=== PATIENT | female | born 1945 | race Caucasian/White ===

== ENCOUNTER 2022-04-27 07:30 | Outpatient (RCR) | payer OTHER, SELFPAY | END 2022-10-05 23:59 | disposition home or self-care (01) | PROVIDERS: PCP Physician Assistant Medical; Visit Provider Family Medicine | DX: M11.261 Other chondrocalcinosis, right knee (principal); M25.461 Effusion, right knee; M17.11 Unilateral primary osteoarthritis, right knee; M16.11 Unilateral primary osteoarthritis, right hip; M25.561 Pain in right knee; M25.552 Pain in left hip; M54.50 Low back pain, unspecified; M51.36 Other intervertebral disc degeneration, lumbar region; Z98.1 Arthrodesis status; R26.89 Other abnormalities of gait and mobility; Z51.89 Encounter for other specified aftercare | CPT/HCPCS: 97032; 97110; 97140; 97162 ==

== ENCOUNTER 2023-01-06 23:21 | Emergency (ER) | payer OTHER, SELFPAY ==
[2023-01-06 23:26] VITALS: BP 172/83; PULSE 72; RESP 18; TEMP 36.9; O2SAT 98; BMI 26.6
[2023-01-06 23:39] LABS: Appearance Urine Clear (Clear); Bilirubin Urine Negative (Negative); Blood Urine 3+ (Negative); Color Urine Yellow (Yellow); Glucose Urine Negative (Negative); Ketones Urine Negative (Negative); Leukocyte Esterase Urine Trace (Negative); Nitrite Urine Negative (Negative); Protein Urine Negative (Negative); Specific Gravity Urine 1.015 (1.000-1.030); Urobilinogen Urine 0.2 (0.2-1.0); pH Urine 5.5 (5.0-8.5)
--- NOTE | 2023-01-06 23:42 | ED_ITS ---
HPI - General Adult General Time Seen by Provider: 23:42 <Tonja Alexander MD - Last Filed: 01/08/23 14:18> Date Seen: 01/06/23 <Tonja Alexander MD - Last Filed: 01/08/23 14:18> Chief complaint: Flank Pain <Tonja Alexander MD - Last Filed: 01/08/23 14:18> Stated complaint: possible kidney stone <Tonja Alexander MD - Last Filed: 01/08/23 14:18> Time Seen by Provider: 01/06/23 23:42 <Tonja Alexander MD - Last Filed: 01/08/23 14:18> Source: patient and RN notes reviewed <Tonja Alexander MD - Last Filed: 1 14:18> Mode of arrival: ambulatory <Tonja Alexander MD - Last Filed: 01/08/23 14:18> Limitations: no limitations <Tonja Alexander MD - Last Filed: 01/08/23 14:18> History of Present Illness HPI narrative: Patient is coming in with complaint of left back pain, wrapping around front of abdomen and radiating into left labial area. Has history of kidney stones. Had blood in urine last week, some low back pain. Now having increasing abdominal pain/back pain. Had nausea on way in. No fever, no vomiting. She states that she gets her kidney function done yearly as she uses a lot of Aleve. Has oxycodone at home for her back but probably only uses every couple of weeks, did not try any tonight. Just wants to know if this is a stone. Was supposed to have one stone removed but when she got to the OR that day, the US showed the stone was gone; thus, no surgical interventions ever for stone pathology. <Tonja Alexander MD - Last Filed: 01/08/23 14:18> Related Data Home medications: Home Medications Medication Instructions Recorded Confirmed amlodipine 5 mg tablet mg PO ONCE 09/15/21 06/08/22 benazepril 10 mg tablet mg PO ONCE 09/15/21 06/08/22 finasteride 5 mg tablet 2.5 mg PO DAILY 09/15/21 06/08/22 gabapentin 300 mg capsule 300 mg PO QDAY 09/15/21 06/08/22 naproxen sodium 220 mg tablet 220 mg PO BID 09/15/21 06/08/22 rosuvastatin 10 mg tablet 10 mg PO DAILY 09/15/21 06/08/22 Previous Rx's Medication Instructions Recorded ondansetron HCl 4 mg tablet 4 mg PO Q8H PRN nausea and 01/07/23 vomiting #20 tabs <Tonja Alexander MD - Last Filed: 01/08/23 14:18> Allergies/adverse reactions: Allergies Allergy/AdvReac Type Severity Reaction Status Date / Time No Known Allergies Allergy Verified 06/08/22 13:28 <Tonja Alexander MD - Last Filed: 01/08/23 14:18> Review of Systems Status of ROS: Reports: 6 or more systems reviewed and unremarkable except as noted in History and below <Tonja Alexander MD - Last Filed: 01/08/23 14:18> [facility] Medical History: Medical History Hair loss ?L65.9 - Nonscarring hair loss, unspecified (ICD-10) Actinic keratoses ?L57.0 - Actinic keratosis (ICD-10) Skin problem ?L98.9 - Disorder of the skin and subcutaneous tissue, unspecified (ICD-10) Stomach problems ?K31.9 - Disease of stomach and duodenum, unspecified (ICD-10) Hypertension ?I10 - Essential (primary) hypertension (ICD-10) <Tonja Alexander MD - Last Filed: 01/08/23 14:18> Surgical History: Surgical History H/O dilation and curettage ?Z98.890 - Other specified postprocedural states (ICD-10) History of tonsillectomy ?Z90.89 - Acquired absence of other organs (ICD-10) Previous back surgery ?Z98.890 - Other specified postprocedural states (ICD-10) History of left hip replacement ?Z96.642 - Presence of left artificial hip joint (ICD-10) Hx of appendectomy ?Z90.49 - Acquired absence of other specified parts of digestive tract (ICD- 10) History of meniscectomy of right knee ?Z98.890 - Other specified postprocedural states (ICD-10) <Tonja Alexander MD - Last Filed: 01/08/23 14:18> Social History: Social History Narrative: Marital Status: Occupation: retired Alcohol Use: No Smoking Status: Never smoker Do you use any of these nicotine containing products: None How often do you have a drink containing alcohol: never AUDIT-C Alcohol total score: 0 Non-prescribed substance use: denies use <Tonja Alexander MD - Last Filed: 01/08/23 14:18> Exam Const: Vital Signs, click to edit/add: Vital Signs - 24 hr 01/06/23 23:26 01/07/23 01:21 01/07/23 01:22 Temperature 98.4 F 98.4 F Pulse Rate [Pulse Oximeter] 72 75 75 Respiratory Rate 18 16 16 Blood Pressure [Ri ght Upper Arm] 172/83 H 129/85 129/85 Pulse Oximetry 98 99 Oxygen Delivery Me thod Room Air Room Air Liseth is sitting up on the bed, looks uncomfortable and anxious. Sclera clear, face atraumatic, able speak in complete sentences. No cervical adenopathy. Lungs are clear, good air entry, no wheezing or crackles. CV regular rate and rhythm, no murmur, normal S1 and S2. She does have some left- sided abdominal pain without any rebound or guarding. No CVA tenderness. Note nursing staff was attempting to get an IV in place and I came in, patient was quite anxious about this. The IV unfortunately did not work. They did not kidney blood off this either. Offered patient IM pain management which she declined. She does not want labs drawn, does not want to have any more needles. She states she has an extremely difficult stick. We did discuss that we can do this CT imaging without the IV but if there would be any suggestion or other concerns of other etiologies, may need labs. She is declining labs at this time. We discussed doing oral oxycodone and pain management with this. <Tonja Alexander MD - Last Filed: 01/08/23 14:18> Vital Signs, click to edit/add: Vital Signs - 24 hr 01/06/23 23:26 01/07/23 01:21 01/07/23 01:22 Temperature 98.4 F 98.4 F Pulse Rate [Pulse Oximeter] 72 75 75 Respiratory Rate 18 16 16 Blood Pressure [Ri ght Upper Arm] 172/83 H 129/85 129/85 Pulse Oximetry 98 99 Oxygen Delivery Me thod Room Air Room Air <Louie Leggett MD - Last Filed: 01/07/23 08:02> Documenting provider has reviewed patient's vital signs: yes <Tonja Alexander MD - Last Filed: 01/08/23 14:18> Course Course ED Course: Obtain the CT abdomen pelvis noncontrast to confirm if this is a kidney stone or not and to estimate size if it is indeed 1. Her urinalysis is showing hematuria, certainly supporting kidney stone pathology. Will hold off any labs. <Tonja Alexander MD - Last Filed: 01/08/23 14:18> Reevaluation(s) Time of Reevaluation #1: 00:40 <Tonja Alexander MD - Last Filed: 01/08/23 14:18> Reevaluation #1: Reviewed with patient that I will be leaving, Dr. Leggett will follow-up on her CT. I do believe I see a stone on the left side, will have to wait radiology over read for this though. She is feeling better with the oxycodone, does states she has oxycodone at home. Will send some Zofran in for her. She can use leave with the oxycodone and Zofran for pain control if this is confirmed to be a kidney stone. She does question me on what happens if the stone is too big to pass. Reviewed with her that she would need to follow up outpatient with Urology, would need to call them Sunday. She used to see Dr. Crawley but is aware that he no longer comes here. I did review with her that he is most definitely in practice in the [facility], she certainly can see him or someone in his group. We will await this CT scan at this time. <Tonja Alexander MD - Last Filed: 01/08/23 14:18> Time of Reevaluation #2: 01:19 <Louie Leggett MD - Last Filed: 01/07/23 08:02> Reevaluation #2: Discussed with patient and , they would like to go home. I do not think this is unreasonable I read I looked at the scan, she has a 3-4 mm proximal left ureterolithiasis with mild hydronephrosis. She also has a posterior fusion notable in her lumbar spine. Not see any evidence of aortic aneurysm, or anything other severe. There is a lot artifact. Time to get her radiology read is approximately 2 hours, She was signed over to me by Dr. Garcia, she will be sent home with some Zofran and some Percocet, p.r.n., she will use from rest fluids, and also MiraLax and Aleve. Went over signs and symptoms of worsening with her. She will follow up if these occur. She will call Urology on Sunday, set up an appointment. Explained to her we will call her if it shows anything else than what I discussed with her on the CT. <Louie Leggett MD - Last Filed: 01/07/23 08:02> Time of Reevaluation #3: 08:00 <Louie Leggett MD - Last Filed: 01/07/23 08:02> Reevaluation #3: I spoke to patient on the phone, I called her. I explained that besides the ureteric calculus we did see a mass of 4.2 cm on the left kidney. This will need further workup with the CT renal protocol or MRI. Patient will see Martina Morrell at the [facility], she is also going to follow-up with urology. Which would be perfect. I will leave a copy of CT, and report for her to see and take with her at the ER desk. <Louie Leggett MD - Last Filed: 01/07/23 08:02> Vital Signs Vital signs: Initial Vital Signs Temperature 98.4 F 01/06/23 23:26 Temperature Source Temporal Artery Scan 01/06/23 23:26 Pulse Rate 72 01/06/23 23:26 Respiratory Rate 18 01/06/23 23:26 Blood Pressure 172/83 H 01/06/23 23:26 Blood Pressure Mean 112 H 01/06/23 23:26 Blood Pressure Position Sitting 01/06/23 23:26 Pulse Oximetry 98 01/06/23 23:26 Oxygen Delivery Method Room Air 01/06/23 23:26 Vital Signs Temperature 98.4 F 01/06/23 23:26 Pulse Rate 72 01/06/23 23:26 Respiratory Rate 18 01/06/23 23:26 Blood Pressure 172/83 H 01/06/23 23:26 Pulse Oximetry 98 01/06/23 23:26 Oxygen Delivery Method Room Air 01/06/23 23:26 Temperature 98.4 F 01/07/23 01:21 Pulse Rate 75 01/07/23 01:22 Respiratory Rate 16 01/07/23 01:22 Blood Pressure 129/85 01/07/23 01:22 Pulse Oximetry 99 01/07/23 01:21 Oxygen Delivery Method Room Air 01/07/23 01:21 <Tonja Alexander MD - Last Filed: 01/08/23 14:18> Initial Vital Signs Temperature 98.4 F 01/06/23 23:26 Temperature Source Temporal Artery Scan 01/06/23 23:26 Pulse Rate 72 01/06/23 23:26 Respiratory Rate 18 01/06/23 23:26 Blood Pressure 172/83 H 01/06/23 23:26 Blood Pressure Mean 112 H 01/06/23 23:26 Blood Pressure Position Sitting 01/06/23 23:26 Pulse Oximetry 98 01/06/23 23:26 Oxygen Delivery Method Room Air 01/06/23 23:26 Vital Signs Temperature 98.4 F 01/06/23 23:26 Pulse Rate 72 01/06/23 23:26 Respiratory Rate 18 01/06/23 23:26 Blood Pressure 172/83 H 01/06/23 23:26 Pulse Oximetry 98 01/06/23 23:26 Oxygen Delivery Method Room Air 01/06/23 23:26 Temperature 98.4 F 01/07/23 01:21 Pulse Rate 75 01/07/23 01:22 Respiratory Rate 16 01/07/23 01:22 Blood Pressure 129/85 01/07/23 01:22 Pulse Oximetry 99 01/07/23 01:21 Oxygen Delivery Method Room Air 01/07/23 01:21 <Louie Leggett MD - Last Filed: 01/07/23 08:02> Medical Decision Making Lab Data Lab results reviewed: Yes I reviewed the patient's lab results <Tonja Alexander MD - Last Filed: 01/08/23 14:18> Labs: Lab Results 01/06/23 Range/Units 23:27 Urine Color Yellow (Yellow) Urine Appearance Clear (Clear) Urine pH 5.5 (5.0-8.5) Ur Specific Dillon 1.015 (1.000-1.030) Urine Protein Negative (Negative) Urine Glucose (UA) Negative (Negative) Urine Ketones Negative (Negative) Urine Blood 3+ A (Negative) Urine Nitrite Negative (Negative) Urine Bilirubin Negative (Negative) Urine Urobilinogen 0.2 (0.2-1.0) Ur Leukocyte Esterase Trace A (Negative) Urine RBC 10-25 A (0-2) Urine WBC 5-10 A (0-5) Ur Squamous Epith Cells Few (None-Few) Urine Bacteria Few A (None) <Tonja Alexander MD - Last Filed: 01/08/23 14:18> Lab Results 01/06/23 Range/Units 23:27 Urine Color Yellow (Yellow) Urine Appearance Clear (Clear) Urine pH 5.5 (5.0-8.5) Ur Specific Dillon 1.015 (1.000-1.030) Urine Protein Negative (Negative) Urine Glucose (UA) Negative (Negative) Urine Ketones Negative (Negative) Urine Blood 3+ A (Negative) Urine Nitrite Negative (Negative) Urine Bilirubin Negative (Negative) Urine Urobilinogen 0.2 (0.2-1.0) Ur Leukocyte Esterase Trace A (Negative) Urine RBC 10-25 A (0-2) Urine WBC 5-10 A (0-5) Ur Squamous Epith Cells Few (None-Few) Urine Bacteria Few A (None) <Louie Leggett MD - Last Filed: 01/07/23 08:02> Imaging Data CT scan - abdomen: Radiologist's impression: Patient: LISETH GRIGGS Facility:?[facility] Patient ID:?[id number] Site Patient ID:?[id number]. Site :?[id number] Study:?CT Abdomen/Pelvis without contrast stone study-01/07/2023 12:32:39 AM Ordering Physician:Caitlin Evangelista Final Report: INDICATION: Hematuria, left abdominal pain. History of kidney stones.. TECHNIQUE: CT abdomen and pelvis without contrast. COMPARISON: None available.. FINDINGS: Lower chest: Minimal atelectasis in the visualized lung bases. Liver: Unremarkable for unenhanced technique. Gallbladder and bile ducts: No stones or inflammation. No biliary dilatation. Pancreas: Unremarkable. No mass or inflammation. Spleen: Normal in size. No masses. Adrenal glands: Normal in size. No nodules. Kidneys: There is a 4 mm left proximal ureteral calculus with mild left hydronephrosis and left perinephric stranding. The left distal ureter is obscured by beam hardening artifact from the patient`s left hip prosthesis. An exophytic 4.2 cm lesion is seen in the interpolar left kidney. Fluid attenuation endophytic lesion within the interpolar right kidney. GI tract: Scattered sigmoid colon diverticula without findings to suggest diverticulitis. Bowel is normal in caliber. Appendix is not visualized. Vasculature: Extensive atherosclerotic aortic calcifications without aneurysmal dilation. Lymph nodes: No lymphadenopathy. Peritoneum/Abdominal Wall: Unremarkable. No sign of mass or infiltration. No free air or significant free fluid. Pelvis: Limited evaluation due to beam hardening artifact from the patient`s left hip prosthesis. Bones: Severe right hip osteoarthritis. Partially visualized left hip arthroplasty. L1-S1 instrumented fusion with L3-S1 interbody grafts. Severe lower thoracic degenerative disc disease. IMPRESSION: 1. Obstructing 4 mm left proximal ureteral calculus with mild hydronephrosis. 2. Indeterminate left renal lesion measuring 4.2 cm. Recommend renal mass protocol CT or MRI for further characterization. Please note that all CT scans at this facility use dose modulation, iterative reconstruction, and/or weight-based dosing when appropriate to reduce radiation dose to as low as reasonably achievable. Dictated by Sammi Villalta MD @ 01/07/2023 3:33:34 AM (Electronic Signature) <Louie Leggett MD - Last Filed: 01/07/23 08:02> Discharge Plan Discharge Clinical Impression: Renal colic on left side <Tonja Alexander MD - Last Filed: 01/08/23 14:18> Patient Disposition: Home w/ Parent or Adult <Tonja Alexander MD - Last Filed: 01/08/23 14:18> Condition: Stable <Tonja Alexander MD - Last Filed: 01/08/23 14:18> Instructions: Renal Colic (ED), Lithotripsy (DC) <Tonja Alexander MD - Last Filed: 01/08/23 14:18> Additional Instructions: Schedule clinic follow-up within the next week. If the stone is not passing, may need to be referred to Urology which can be done through your primary clinic. Drink plenty of fluids, including water, for goal of keeping ur ine clear looking. Tylenol a 1000 mg 3 times a day baseline for pain. Can supplement with Aleve or ibuprofen per bottle directions. You can use the oxycodone that you have at home for more severe pain, follow bottle directions for dosing. Should your pain management be inadequate, develop vomiting, or have fever develop in the context of a kidney stone, need to return to the ER for further evaluation. Taking MiraLax 1 cap full with 20 oz of water per day. This will help prevent constipation if you do not have a bowel movement within 2 days, then increase to twice daily. Call Urology on Sunday, get appointment for later in the week. <Tonja Alexander MD - Last Filed: 01/08/23 14:18> Activity Level: Light activity <Tonja Alexander MD - Last Filed: 01/08/23 14:18> Light activity <Louie Leggett MD - Last Filed: 01/07/23 08:02> Discharge Diet: Regular <Tonja Alexander MD - Last Filed: 01/08/23 14:18> Regular <Louie Leggett MD - Last Filed: 01/07/23 08:02> Prescriptions: New ondansetron HCl 4 mg tablet 4 mg PO Q8H PRN (Reason: nausea and vomiting) Qty: 20 0RF No Action rosuvastatin 10 mg tablet 10 mg PO DAILY finasteride 5 mg tablet 2.5 mg PO DAILY benazepril 10 mg tablet PO ONCE naproxen sodium 220 mg tablet 220 mg PO BID amlodipine 5 mg tablet PO ONCE gabapentin 300 mg capsule 300 mg PO QDAY <Tonja Alexander MD - Last Filed: 01/08/23 14:18> Follow Up/Referrals: Frederick Crawley MD [Referring] - Martina Mays PA-C [Primary Care Provider] - <Tonja Alexander MD - Last Filed: 01/08/23 14:18> Stand Alone Forms: MyHealth Info Instructions <Tonja Alexander MD - Last Filed: 01/08/23 14:18>
--- NOTE | 2023-01-06 23:49 | CRLHL7_ITS ---
For Patients: As a result of the Century Cures Act, medical imaging exams and procedure reports are released immediately into your electronic medical record. You may view this report before your referring provider. If you have questions, please contact your health care provider. INDICATION: Hematuria, left abdominal pain. History of kidney stones.. TECHNIQUE: CT abdomen and pelvis without contrast. COMPARISON: None available.. FINDINGS: Lower chest: Minimal atelectasis in the visualized lung bases. Liver: Unremarkable for unenhanced technique. Gallbladder and bile ducts: No stones or inflammation. No biliary dilatation. Pancreas: Unremarkable. No mass or inflammation. Spleen: Normal in size. No masses. Adrenal glands: Normal in size. No nodules. Kidneys: There is a 4 mm left proximal ureteral calculus with mild left hydronephrosis and left perinephric stranding. The left distal ureter is obscured by beam hardening artifact from the patient`s left hip prosthesis. An exophytic 4.2 cm lesion is seen in the interpolar left kidney. Fluid attenuation endophytic lesion within the interpolar right kidney. GI tract: Scattered sigmoid colon diverticula without findings to suggest diverticulitis. Bowel is normal in caliber. Appendix is not visualized. Vasculature: Extensive atherosclerotic aortic calcifications without aneurysmal dilation. Lymph nodes: No lymphadenopathy. Peritoneum/Abdominal Wall: Unremarkable. No sign of mass or infiltration. No free air or significant free fluid. Pelvis: Limited evaluation due to beam hardening artifact from the patient`s left hip prosthesis. Bones: Severe right hip osteoarthritis. Partially visualized left hip arthroplasty. L1-S1 instrumented fusion with L3-S1 interbody grafts. Severe lower thoracic degenerative disc disease. IMPRESSION: 1. Obstructing 4 mm left proximal ureteral calculus with mild hydronephrosis. 2. Indeterminate left renal lesion measuring 4.2 cm. Recommend renal mass protocol CT or MRI for further characterization. Please note that all CT scans at this facility use dose modulation, iterative reconstruction, and/or weight-based dosing when appropriate to reduce radiation dose to as low as reasonably achievable. Dictated by Sammi Villalta MD @ 01/07/2023 3:33:34 AM (Electronically Signed)
[2023-01-06] MEDS: OXYCODONE 5 MG TABLET PO (23:56)
[2023-01-06] MEDS: ONDANSETRON ODT 4 MG TAB PO (23:57)
[2023-01-07 00:09] LABS: Bacteria Urine Few; Squamous Epithelial Cell Urine Few (None-Few)
--- OUTSIDE RECORDS SUMMARY | 2023-01-07 00:45 | XMS_ITS | Continuity of Care Document ---
Author Name Unknown Organization [facility] Address [address] [place] [address] Phone Care Team Providers Care Micro Lab Analyst Name Role Phone Will Mark LANDAVERDE Unavailable Unavailabl e Allergies, Adverse Reactions, Alerts Substance Reaction Status Criticality egg Active No Information latex Active No Information Medications Medication Instructions Dosage Effective Dates (start - stop) Status Comments medical cannabis ORAL as needed for pain 18 - Active oxycodone 5 mg tablet take 1 tablet by oral route once daily as needed - Active losartan 50 mg tablet take 1 tablet by oral route every day 50 MG - Active hydrochlorothiazide 25 mg tablet take 1 tablet by oral route every day 25 MG - Active potassium chloride 20 mEq oral packet take 1 packet by oral route every day dissolved in 4-6 ounces of cold water or juice 20 MEQ - Active gabapentin 300 mg capsule take 1 capsule by oral route every day 300 MG - Active rosuvastatin 20 mg tablet take 1 tablet by oral route every day 20 MG - Active Aleve 220 mg tablet take 1 tablet by oral route every 6 hours as needed 220 MG - Active Procedures Procedure Date OFFICE/OUTPATIENT VISIT, EST Drug test def 22+ classes OFFICE/OUTPATIENT VISIT, EST Drug test def 22+ classes Drug Urine Toxology With Chromatography OFFICE/OUTPATIENT VISIT, EST OFFICE CONSULTATION Advance Directives Directive Yes / No Effective Date File Name No Information Encounters Encounter Description Practice Location Reason(s) For Visit Diagnoses Date Provider Providers Copied on Encounter [facility], [address] [place], [place], [id number] , [place] tel: [phone] [facility] [place] No Information 2 Will Mark. [address] [place] [address] [place], [id number] , [place]. tel: [phone] OFFICE/OUTPAT IENT VISIT, [facility], [address] [place] [address] Eb[place], [id number] , [place] tel: [phone] [facility] Back Pain (chief complaint) Bilateral primary osteoarthritis of hipPostlaminectomy syndrome, not elsewhere classifiedSpinal stenosis, lumbar region with neurogenic claudicationLong term (current) use of opiate analgesicEncounter for therapeutic drug level monitoringPain in right hip 9 Garcia Alvarado. [facility], [address], [place], [address], [place]. tel: [phone] Referring Provider: Mark Kinney, [address] [place] [address] [place], [address] . tel:[phone] OFFICE/OUTPAT IENT VISIT, [facility], [address] [place] [address] [place], [id number] , [place] tel: [phone] [facility] Back Pain (chief complaint) Bilateral primary osteoarthritis of hipPostlaminectomy syndrome, not elsewhere classifiedSpinal stenosis, lumbar region with neurogenic claudication 5201 8 Garcia Alvarado. [facility], [address], [place], [address], [place]. tel: [phone] Referring Provider: Mark Kinney, [address] [place] [address] [place], [address] . tel:[phone] [facility], [address] [place] [address], [id number] , [place] tel: [phone] [facility] [place] No Information 0-201 8 Garcia Alvarado. [facility], [address], [place], [address], [place]. tel: [phone] OFFICE/OUTPAT IENT VISIT, [facility], [address] [place], [place], [id number] , [place] [phone] [facility] [place] Back Pain (chief complaint) Bilateral primary osteoarthritis of hipPostlaminectomy syndrome, not elsewhere classifiedSpinal stenosis, lumbar region with neurogenic claudication 8 Garcia Alvarado. [facility], [address], [place], [address], [place]. [phone] Referring Provider: Mark Kinney, [address] [place], [address] . tel:[phone] OFFICE CONSULTATION [facility], [address] [place], [place], [id number] , [place] [phone] [facility] Back Pain (chief complaint) buttermaker continuous churn (current) use of opiate analgesicBilateral primary osteoarthritis of hipPostlaminectomy syndrome, not elsewhere classifiedSpinal stenosis, lumbar region with neurogenic claudication Garciajeannette Childers. [facility], [address], [place], [address], [place]. [phone] Referring Provider: Mark Kinney, [address] [place], [address] . tel:[phone] Family History Family Member Type Diagnosis Age At Onset No Information Payers Payer name Insurance type Covered libertarian ID Authorlewisa timaritza(s) Medicare [id number] [employer] Supplement Plan [id number] Social History Type Description Quantity Date Captured Comments Sex Female Smoking Status No Information Chief Complaint And Reason For Visit No Information Reason For Referral Reason For Referral No Information Plan Of Treatment Date Type Action Status Future Order: Lab Order Drug Elisabet t Def 22+ Classes (G0483), Ordered on: Ordered Future Order: Lab Order COMPLIAN CE DRUG ANALYSIS, URINE, WITH MED REPORT ([id number]), Ordered on: Ordered Future Order: Lab Order COMPLIAN CE DRUG ANALYSIS, URINE, WITH MED REPORT ([id number]), Ordered on: Aug-29-2018 Ordered History Of Present Illness Encounter Date Complaint History Of Prese nt Illness Back Pain (comments) Ms. Kristen avelar s here for follow up s/p medical cannabis certification. Reports current regimen provides 30% pain relief and allows for better sleep. Continues to manage with tangerine product and has recently incorporated cobalt CBD product. Also takes oxycodone PRN (approximately once weekly for severe pain). Denies side effects from current medication regimen. C/o ongoing low back today, which is stable overall. After sitting for prolonged periods of time, she also has radiating pain to lateral aspect of BL thighs. Additionally notes worsening symptoms in the R hip and R knee. Has hx of L hip replacement in 2016. States she was worked up with orthopedist who advised she is not a surgical candidate for right hip or knee at this time. Does not wish to pursue SCS trial discussed last OV. Expresses some interest in R hip joint injection and will call to schedule if she decides to pursue. Back Pain Severity level i s 6. Duration: chronic. The problem is stable. It occurs intermittently. Location of pain is lower back. Pain is radiated to the left thigh and right thigh.The patient describes the pain as an ache. Symptoms are aggravated by bending, lifting and sitting. Symptoms are relieved by lying down and rest. Back Pain Severity level i s 6. Duration: chronic. The problem is improving. Location of pain is upper back, lower back and right shoulder.There is no radiation of pain. The patient describes the pain as an ache. Symptoms are aggravated by bending, sitting and walking. Symptoms are relieved by pain meds/drugs and rest. Back Pain (comments) Ms. Kristen avelar s here for follow up s/p medical cannabis certification. Reports current medication regimen provides 50% pain relief. Denies side effects from current medication regimen. Pain is improving. She is currently taking the tangerine cannabis product-- has improved her sleep and dulled her pain. She will consider an SCS trial and reassess at next OV. She presents with her , who contributes to today's OV.No other red flag symptoms. Back Pain (comments) Ms. Kristen avelar s here for follow up-- has been considering the various tx options discussed at last OV. Current medication regimen provides 50% pain relief. Her pain is stable. Inquires about medical cannabis.No other red flags or neurologic symptoms. Back Pain Severity level i s 4. Duration: chronic. The problem is stable. It occurs persistently. Location of pain is lower back, gluteal area and right shoulder. Pain is radiated to the left thigh, right thigh and knees bilateral.The patient describes the pain as an ache. Symptoms are aggravated by bending, lifting, standing, walking, prolonged positioning, sitting and movement. Symptoms are relieved by lying down and pain meds/drugs. Back Pain (comments) Ms. Peterson i s here for initial consult for widespread pain, referred by Dr. Martina Mays. Her current pain has persisted for over four years. Her worst pain is in her left groin. States her pain severely disrupts her daily activity, cannot sit for more than an hour, difficulty sleeping. Presents with her Winston, who contributes to OV.No other red flags or neurologic symptoms.Has had multiple surgeries: 3 back, hip replacement, foot surgery. Tried PT in 2007, 2009, 2015, and 2017-- not helpful and most recent PT caused groin pain. Tried multiple injections, RFA-- not helpful. Reports previous MRI, X-ray, and EMG at [facility] [place] and Orthopedics. Has tried hydrocodone, oxycodone, gabapentin. Currently taking pain pills that were originally rx'd in , vicodin from summer 2016, for addtional pain relief. Ms. Peterson is interested in pills to stop the pain and would like [facility] to assume managment of pain care. Back Pain Severity level i s 8. Duration: chronic. The problem is worsening. It occurs persistently. Location of pain is upper back, middle back, lower back, gluteal area and neck. Pain is radiated to the left thigh, right thigh, knee bilateral and groin.The patient describes the pain as an ache and Pins and needles. Symptoms are aggravated by ascending stairs, bending, daily activities, descending stairs, lifting, lying/rest, sitting, standing, twisting and walking. Symptoms are relieved by pain meds/drugs. Functional Status Date Functional Assessmen t No Information Instructions Date Instruction Additional Infor mation No Information Assessments Type Assessment Date No Information Patient Care Teams Name Effective Dates (start - stop) Status Members No Information
--- OUTSIDE RECORDS SUMMARY | 2023-01-07 00:45 | XMS_ITS | Continuity of Care Document ---
Author Name Unknown Organization [facility] Address [address] [place] [address] Phone Care Team Providers Care Printer Slotter Operator Name Role Phone Alesha OLIVARES, PhD, Atilio Unavailable Unavai lable Allergies, Adverse Reactions, Alerts Substance Reaction Status Criticality latex Active No Information Medications Medication Instructions Dosage Effective Dates (start - stop) Status Comments ROSUVASTATIN CALCIUM (unknown strength) Not Available - Active PRAMIPEXOLE DIHYDROCHLORIDE (unknown strength) Not Available - Active BENAZEPRIL HCL (unknown strength) Not Available - Active FINASTERIDE (unknown strength) Not Available - Active AMLODIPINE BESYLATE (unknown strength) Not Available - Active OXYCODONE-ACETAMINOPHE N (unknown strength) Not Available - Active NEURONTIN (unknown strength) Not Available - Active ALEVE (unknown strength) Not Available - Active ALEVE (unknown strength) Not Available - Active Vicodin (unknown strength) Not Available - No Longer Active LISINOPRIL (unknown strength) Not Available - No Longer Active Procedures Procedure Date Office/Outpatient Visit,New, Mod 2022 Office/Outpatient Visit,Est, Mod 2015 X-Ray Exam Lower Spine 2-3 Views 2015 Office/Outpatient Visit,Est, Mod 2014 X-Ray Exam Of Knee, 1 Or2 Views 015 Office/Outpatient Visit,Est, Mod 2014 Office/Outpatient Visit,Est, Mod 2011 X-Ray Exam Lower Spine 2-3 Views 2011 Office/outpatient visit,est, low 2010 X-ray exam lower spine 2-3 views 2010 Postop followup visit Postop followup visit X-ray exam lower spine 2-3 views 2009 Lumbar spine fusion, posterolateral Spine fusion, each add'lvertebra 2009 Lumbar spine fus, pstr intrbdy sngl Decompress lumbar spinalcord seg 2009 Bilateral Low back disk surgery/decompre ss Insert spine seg fix, post, 3-6 seg Remove spine seg fixation dev, post Apply spinal prosthetic device 10 Allograft, spine surg, morselized Autograft, spine surgery, local 010 PA Assist Lumbar spine fusion, posterola teral PA Assist Spine fusion, each add'lverteb ra PA Assist Lumbar spine fus, pstr intrbdy sngl PA Assist Decompress lumbar spinalcord s eg Bilateral PA Low back disk surgery/decom press PA Assist Insert spine seg fix, post, 3- 6 seg PA Assist Remove spine seg fixation dev, post PA Assist Apply spinal prosthetic device Office/outpatient visit,est, mod 2009 X-ray exam lower spine 2-3 views 2009 Office/outpatient visit,est, low 2008 X-ray exam lower spine 2-3 views 2008 Office/outpatient visit,est, low 2008 X-ray exam lower spine 2-3 views 2008 Postop followup visit X-ray exam lower spine 2-3 views 2007 Postop followup visit X-ray exam lower spine 2-3 views 2007 Office/outpatient visit,est, low 2006 Office/outpatient visit,est, low 2006 Office consultation, moderate 7 X-ray exam lwr spine, min 4 views Advance Directives Directive Yes / No Effective Date File Name No Information Encounters Encounter Description Practice Location Reason(s) For Visit Diagnoses Date Provider Providers Copied on Encounter Office/Outpa tient Visit,New, Mod [facility], [address] [facility], [place], [place], [id number], [place] tel:[phone] [facility] No Information 3 Alesha Trimble. [facility], [address] [place] [address], [place], [address], [place]. [phone] Referring Provider: Martina Mays [address], [place], [address]. tel:[phone] Office/Outpa tient Visit,Est, Mod [facility], [address] [place] [address], [id number], [place] tel:[phone] [facility] [place] Other intervertebral disc displacement, lumbar region -201 6 Mehbod Amir. [facility], [address] [place] [address], [place], [place], [id number] , [place]. [phone] Referring Provider: Claude Meek, [address], [place], [address]. tel:[phone] Office/Outpa tient Visit,Est, Mod [facility], [address] [place] [address], [id number], [place] tel:[phone] [facility] OverweightOthe r intervertebral disc displacement, lumbar region 201 5 Mehbod Amir. [facility], [address] [place] [address], [place], [place], [id number] , [place]. [phone] Referring Provider: Martina Mays [address], [place], [address]. tel:[phone] Office/Outpa tient Visit,Est, Mod [facility], [address] [place] [address], [id number], [place] tel:[phone] [facility] LumbagoLumbar DDDBursitis of hip 2201 5 Eckroth Darnell. [address], [place], [place], [id number] , [place]. [phone] Referring Provider: Martina Mays, [address], [place], [address]. tel:[phone] Office/Outpa tient Visit,Est, Mod Z [facility], [address] [place] [address] [address], [place], [address], [place] tel:[phone] [facility] LUMBAGO Albert-201 2 Mehbod Amir. [facility], [address], [place], [place], [id number] , [place]. [phone] Referring Provider: Claude Meek, [address], [address]. tel:[phone] Z [facility], [address] [place] [address], [address], [place] tel:[phone] [facility] Hypertension, Unspecified 1 Mehbod Amir. [facility], [address], [place], [place], [id number] , [place]. [phone] Office/outpa tient visit,est, low Z [facility], [address] [place], [place] [address], [place], [address], [place] tel:[phone] [facility] No Information 1 Mehbod Amir. [facility], [address], [place], [place], [id number] , [place]. [phone] Referring Provider: Claude Meek [address], [address]. tel:[phone] Z [facility], [address] [place] [address], [address], [place] tel:[phone] [facility] No Information 8-201 0 Mehbod Amir. [facility], [address], [place], [place], [id number] , [place]. tel:[phone] Referring Provider: Claude Meek [address], [address]. tel:[phone] Z [facility], [address] [place] [address], [address], [place] tel:[phone] [employer] No Information Sep-2 7-201 0 Mehbod Amir. [facility], [address] [place] [address] [address], [place], [id number] , [place]. tel:[phone] Referring Provider: Claude Meek [address], [address]. tel:[phone] Z [facility], [address] [place] [address], [facility], [place] tel:[phone] [facility] No Information 7-201 0 Mehbod Amir. [facility], [address] [place] [address], [id number] , [place]. tel:[phone] Referring Provider: Claude Meek [address], [address]. tel:[phone] Office/outpa tient visit,est, mod Z [facility], [address] [place] [address], [address], [place] tel:[phone] [employer] No Information Mar-0 8-201 0 Mehbod Amir. [facility], [address] [place] [address] [address], [place], [id number] , [place]. tel:[phone] Referring Provider: Claude Meek[address], [address]. tel:[phone] Office/outpa tient visit,est, low Z [facility], [address], [address], [place] tel:[phone] [employer] No Information 6-200 9 Mehbod Amir. [facility], [address] [place] [address] [address], [place], [place], [id number] , [place]. tel:[phone] Referring Provider: Claude Meek [address], [address]. tel:[phone] Office/outpa tient visit,est, low Z [facility], [address] [place], [place] [address], [place], [address], [place] tel:[phone] [employer] No Information 0 5-200 9 Mehbod Amir. [facility], [address] [place] [address] [address], [place], [place], [id number] , [place]. tel:[phone] Referring Provider: Claude Meek [address], [address]. tel:[phone] Z [facility], [address] [place] [address], [address], [place] tel:[phone] [employer] No Information 4-200 8 Mehbod Amir. [facility], [address] [place] [address], [id number] , [place]. tel:[phone] Referring Provider: Claude Meek [address], [address]. tel:[phone] Z [facility], [address], [address], [place] tel:[phone] [employer] No Information 0 3-200 8 Mehbod Amir. [facility], [address] [place] [address] [address], [place], [place], [id number] , [place]. tel:[phone] Referring Provider: Claude Meek [address], [address]. tel:[phone] Office/outpa tient visit,est, low Z [facility], [address], [place], [address], [place] tel:[phone] [employer] No Information 9-200 7 Mehbod Amir. [facility], [address], [place], [place], [id number] , [place]. tel:[phone] Referring Provider: Claude Meek [address], [address]. tel:[phone] Office/outpa tient visit,est, low Z [facility], [address] [place], [place] [address], [place], [address], [place] tel:[phone] [facility] No Information 7 Mehbod Amir. [facility], [address] [place] [address] [address], [place], [place], [id number] , [place]. tel:[phone] Referring Provider: Claude Meek [address], [address]. tel:[phone] Office consultation , moderate Z [facility], [address], [place], [address], [place] tel:[phone] [employer] No Information 7 Mehbod Amir. [facility], [address] [place] [address] [address], [place], [place], [id number] , [place]. tel:[phone] Referring Provider: Claude Meek [address], [address]. tel:[phone] Family History Family Member Type Diagnosis Age At Onset No Information Payers Payer name Insurance type Covered alliance party ID Daljit abraham(s) [employer] Medicare Cuca LOPEZ [id number] Social History Type Description Quantity Date Captured Comments Alcohol Use Details Unknown Caffeine Use Details Unknown Tobacco Use Status Ex-cigarette smoker 023 Smoking Status Former smoker Non-Smoking Tobacco Use Details : No Details Available : No Details Available Sex Female Vital Signs Date / Time: Height Weight BMI Pulse Rate Blood Pressure Temperature Respiratory Rate Body Surface Area Head Circumference Head Circ. Percentile Wt./Wade. Percentile BMI percentile Pulse Ox Inhaled Ox 8:58 AM 64.00 in Chief Complaint And Reason For Visit No Information Reason For Referral Reason For Referral No Information Plan Of Treatment Date Type Action Status Future Order: Radiology Order AP Lateral Lumbar (APLatLumb), Ordered on: Ordered Future Order: Radiology Order Kn ee 1 Or 2 Views ([id number]), Ordered on: Ordered History Of Present Illness Encounter Date Complaint History Of Prese nt Illness No Information Functional Status Date Functional Assessmen t No Information Instructions Date Instruction Additional Infor dolores Weight management: I nstructed to return to General Practitioner timeframe: 1 Month. Related to Overweight Weight Management Education Rela floresita to Overweight Assessments Type Assessment Date No Information Patient Care Teams Name Effective Dates (start - stop) Status Members No Information
[2023-01-07 01:21] VITALS: BP 129/85; PULSE 75; RESP 16; TEMP 36.9; O2SAT 99
[2023-01-07 01:22] VITALS: BP 129/85; PULSE 75; RESP 16
== END 2023-01-07 01:23 | disposition home or self-care (01) ==
PROVIDERS: Emergency Provider Family Medicine; PCP Physician Assistant Medical
DX: K52.89 Other specified noninfective gastroenteritis and colitis (principal); R31.9 Hematuria, unspecified
CPT/HCPCS: 74176; 81001; 87086; 99284; A9270

== ENCOUNTER 2023-01-16 09:15 | Outpatient (RCR) | payer OTHER, SELFPAY | END 2023-05-16 23:59 | disposition home or self-care (01) | PROVIDERS: PCP Physician Assistant Medical; Visit Provider Physician Assistant Medical | DX: M54.12 Radiculopathy, cervical region (principal); M50.30 Other cervical disc degeneration, unspecified cervical region; Z51.89 Encounter for other specified aftercare | CPT/HCPCS: 97110; 97112; 97140; 97162; 97535 ==

== ENCOUNTER 2024-06-09 15:07 | Emergency (ER) | payer MEDICARE, SELFPAY ==
--- OUTSIDE RECORDS SUMMARY | 2024-06-09 15:10 | XMS_ITS | Clinical Summary ---
Author Organization [facility] Address [address] [place] [address] Care Team Providers Care Hat Trimmer Name Role Phone Martina Mays Primary Care Provider Allergies Active Allergy Reactions Criticality Noted Date Comments Egg Extract GI Upset 12/27/2023 Egg GI Upset 07/31/2006 Gas pain and nausea to vomiting Latex Rash,Hives 03/14/2007 reacted to medicated patch Medications naproxen (ALEVE) 220 mg tabletIndicatio ns:Sacroiliac pain Take 1 tablet by mouth 2 times daily with meals. Pt takes 2 tabs twice a day 0 3 Active fluorouracil 5% topical (EFUDEX) 5 % cream 5 Active triamcinolone (ARISTOCORT; KENALOG) 0.1 % creamIndication s:Scalp lesion Apply topically to affected area(s) 3 times daily. 80 g 2 Active clotrimazole-be tamethasone cream (LOTRISONE) 1-0.05 % creamIndication s:Tinea Apply topically to affected area(s) two times daily. 45 g 3 Active pramipexole (MIRAPEX) 0.125 mg tabletIndicatio ns:RLS (restless legs syndrome) Take 1 or 2 tabs by mouth 2-3 hours before bedtime for RLS 180 Tablet 3 4 Active oxyCODONE (ROXICODONE) 5 mg immediate release tabletIndicatio ns:S/P lumbar fusion Take 1 Tablet (5 mg) by mouth every 4 hours if needed for Pain. Chronic pain 30 Tablet 4 Active LORazepam (ATIVAN) 1 mg tabletIndicatio ns:Anxiety Take 1 tablet 1/2 to 1-hour prior to procedure. 1 Tablet 4 Active gabapentin (NEURONTIN) 300 mg capsuleIndicati ons:S/P lumbar fusion Take 1 capsule in the am, 1 at noon and take 1-2 capsules at bedtime 240 Capsule 3 5 Active amLODIPine (NORVASC) 5 mg tabletIndicatio ns:HTN (hypertension) Take 1 Tablet (5 mg) by mouth once daily. 90 Tablet 3 5 Active benazepriL (LOTENSIN) 20 mg tabletIndicatio ns:HTN (hypertension) Take 1 Tablet (20 mg) by mouth once daily. 90 Tablet 3 5 Active rosuvastatin (CRESTOR) 10 mg tabletIndicatio ns:Hypercholest erolemia Take 1 Tablet (10 mg) by mouth at bedtime. 90 Tablet 2 5 Active rosuvastatin (CRESTOR) 10 mg tabletIndicatio ns:Hypercholest erolemia Take 1 Tablet (10 mg) by mouth at bedtime. 90 Tablet 3 5 06/01/19 25 Discontinu ed(*Availa bility/For mulary change/Cos t of medication ) Active Problems Problem Noted Date Diagnosed Date Hyperopia of both eyes with astigmatism and pres byopia 05/09/2016 Nuclear senile cataract of both eyes 05/09/2016 S/P total hip arthroplasty 06/15/2015 Advanced T12-L1 DDD 09/17/2013 Screen for colon cancer 06/28/2011 Overview (06/28/2011): Colonoscopy 06/2011 normal, no follow up needed S/P L1-Sacrum Fusion 05/01/2011 Sacroiliac pain 04/03/2011 Trochanteric bursitis of left hip 04/03/2011 Migraine 11/02/2009 Restless legs syndrome (RLS) 08/03/2006 Calculus of kidney 08/03/2006 Unspecified essential hypertension Resolved Problems Problem Noted Date Diagnosed Date Resolved Date Nausea with vomiting 11/05/2009 012 Hypotension 11/03/2009 05/01/2011 Hypokalemia 11/03/2009 05/01/2011 Hypomagnesemia 11/03/2009 05/01/2011 L4-Sacrum Fusion 11/19/2008 04/03/2011 Plantar fasciitis 11/19/2008 05/01/2011 Thoracic or lumbosacral neur itis or radiculitis, unspecified 08/03/2006 05/01/2011 Displacement of lumbar inter vertebral disc without myelopathy 08/03/2006 05/01/2011 Overview (08/03/2006): L3-4 HNP plus L4-5 diskectomy and foramenotomy Encounters Date Type Department Care Team Description 05/29/2024 Refill [facility] [address] [place] [address] Martina Mays PA Refill Request (Rosuvastatin) 05/20/2024 2:20 PM LAWN SERVICE SUPERVISOR Office Visit [facility] [address] [place] [address] Ricky Shukla, OD Eye Exam (CEE) 05/20/2024 Travel 05/15/2024 Travel 05/06/2024 10:40 AM LAWN SERVICE SUPERVISOR Ancillary Procedure [facility] [address] [place] [address] 05/06/2024 9:30 AM LAWN SERVICE SUPERVISOR Office Visit [facility] [address] [place] [address] Martina Mays PA Medication Management (Gabapentin - discuss pain clinics recommendations ); Follow Up (Was at pain clinic last week, would like to discuss); Wheezing; Headache (Has been getting a pain in the same spot in her head) 05/06/2024 Travel 05/02/2024 Travel 04/17/2024 Refill [facility] [address] [place] [address] Martina Mays PA Refill Request (Amlodipine) from Last 3 Months Immunizations Immunization Administration Dates Next Due Hepatitis B (Adult) 02/08/1996,08/03/1995,1995 Pneumococcal Poly,23-Valent (Pneumovax) 11/05/19 10 Pneumococcal conj 13-Valent (Prevnar 13) 020 Td (Age >=7 Years) 02/23/2006,07/06/1995 Td, Preservative Free (age >= 7 Years) 6 Tdap 10/30/2011 Zoster (Shingrix-RZV, recombinant) 12/26/2018, Zoster (Zostavax-ZVL, live) 08/16/2007 Family History Medical History Relation Name Comments Cancer Father Stomach cancer Cancer-breast Maternal Aunt Cancer-breast Mother Other Mother macular degener ation Cancer-breast Sister Other Sister glaucoma Cancer-ovarian No Family History Relation Name Status Comments Father Maternal Aunt Mother Sister Social History Tobacco Use Types Packs/Day Years Used Date Smoking Tobacco: Never Smokeless Tobacco: Never Tobacco Cessation:Counseling Given: Yes Alcohol Use Standard Drinks/Week Comments No 0 (1 standard drink = 0.6 oz pur e alcohol) PHQ-2 Answer Date Recorded PHQ-2 TOTAL SCORE 0 12/06/2022 Social Connections Answer Date Recorded Do you often feel lonely or isolated from those around you? 0 05/06/2024 Financial Resource Strain Answer Date R ecorded Difficulty of Paying Living Expenses 3 05/06/2024 Difficulty of Paying Living Expenses Not on file 05/06/2024 Food Insecurity Answer Date Recorded Do you worry your food will run out before you are able to buy more? 1 05/06/2024 Transportation Needs Answer Date Record ed Does lack of transportation keep you from medica l appointments? 1 05/06/2024 Does lack of transportation keep you from work, meetings or getting things that you need? 1 05/06/2024 Housing Stability Answer Date Recorded What is your housing situation today? 1 05/06/2024 Utilities Answer Date Recorded Do you have trouble paying f or utilities (for example, heat, electricity, water, phone)? 1 05/06/2024 Comments No Sex and Gender Information Value Date Recorded Sex Assigned at Not on file Legal Sex Female 5:23 AM LAWN SERVICE SUPERVISOR Gender Identity Not on file Sexual Orientation Not on file Obstetrics History Para Term AB IAB SAB Ectopic Multiple Livin g Live Births 1 1 Date Outcome GA Total Labor Labor/2nd/3rd Weight Sex Type Anes PTL Yesi A1 A5 Name Clin Para Last Filed Vital Signs Vital Sign Reading Time Taken Comments Blood Pressure 128/75 05/06/2024 9:34 AM LAWN SERVICE SUPERVISOR Pulse 65 05/06/2024 9:34 AM LAWN SERVICE SUPERVISOR Temperature 36.8 C (98.2 F) 12/27/2023 1:16 PM CDT Respiratory Rate 12 06/28/2016 11:34 AM CDT Oxygen Saturation 98% 05/06/2024 9:34 AM LAWN SERVICE SUPERVISOR Inhaled Oxygen Concentration - - Weight 73.9 kg (163 lb) 09/05/2021 7:37 AM CDT Height 160.7 cm (5' 3.27) 09/05/2021 7:37 AM CD T Body Mass Index 28.63 09/05/2021 7:37 AM CDT Plan of Treatment Health Maintenance Due Date Last Done Comments RSV vaccine for adults or (1 - 1-dose 75+ series) 07/15/2018 Tetanus booster 10/29/2021 10/30/2011, 10/2005, 02/23/2006, Additional history exists Medicare Wellness for age 65+ 04/26/2022 04/25/2021 BMI (ht and wt on same day) for age 18+ 09/05/2022 09/05/2021, 06/17/2018, 06/01/2015 COVID-19 vaccine series ( season) 2023 02/01/2021, 06/12/2020 Depression screening for age 12+ 12/07/2023 12/06/2022, 04/25/2021, 04/19/2019, Additional history exists Tdap Completed 10/30/2011 DEXA/DXA scan for age 65+ Completed 10/05/2015, Zoster (shingles) series for age 50+ Completed 12/26/2018, 10/14/2018, 08/16/2007 Pneumococcal series for age 50+ Completed , 11/04/2009 Medical Devices Implanted Type Area Rn Intake Device Identifier Shelf Expiration Date Model / Serial / Lot Silas Spinal Hex End 20in Titnm Cd - [id number] Implanted:Qty: 1 on 11/02/2009 at [facility] Spine Implants N/A: Spine SOFAMOR DANEK [id number]# / / [id number] e Precision [id number] [[id number]] Implanted:Qty: 1 on 04/09/2007 at [facility] Explanted:at [facility] (Quantity not on file) Spine RT[employer] Inc 11/09/2011 [id number]# / [id number] / [id number] Prec 14x26 [[id number]] Implanted:Qty: 1 on 04/09/2007 at [facility] Explanted:at [facility] (Quantity not on file) Spine [employer] 04/06/2011 [id number]# / [id number] / [id number] bone Canclls Crushed 30cc [[id number]] Implanted:Qty: 1 on 04/09/2007 at [facility] Explanted:at [facility] (Quantity not on file) Spine Allosource 01/22/2012 [id number] # / [id number] / Kit Marco Md - [id number] Implanted:Qty: 1 on 04/09/2007 at [facility] Spine SOFAMOR DANEK [id number]# / / [id number] Screw Polyaxial 6.5x45mm - [id number] Implanted:Qty: 4 on 04/09/2007 at [facility] Spine HOWMEDICA [id number] # / / Screw Polyaxial 6.5x40mm - [id number] Implanted:Qty: 1 on 04/09/2007 at [facility] Spine [employer]MEDICA [id number] # / / Dot Vicky [id number] - [id number] Implanted:Qty: 6 on 04/09/2007 at [facility] Spine HOWMEDICA [id number]# / / Screw Polyaxial 6.5x35mm - [id number] Implanted:Qty: 1 on 04/09/2007 at [facility] Spine [employer]MED[employer] [id number] # / / Silas Vicky Rad 60mm 108mm Radius - [id number] Implanted:Qty: 2 on 04/09/2007 at [facility] Spine [employer]MEDICA [id number] # / / [id number] Canclls Crushed 60cc [[id number]] Implanted:Qty: 1 on 11/02/2009 at [facility] Explanted:at [facility] (Quantity not on file) Spine Musculoskeletal Transplant 07/12/2012 [id number]# / [id number] / Set Screw 3dx - [id number] Implanted:Qty: 11 on 11/02/2009 at [facility] N/A: Spine MEDTRONIC PS MEDICAL [id number]# / / Cnnctr Tsrh 3dx Sm - [id number] Implanted:Qty: 11 on 11/02/2009 at [facility] N/A: Spine Medtronic [id number]# / / Screw Osteogrip 6.5x35mm - [id number] Implanted:Qty: 1 on 11/02/2009 at [facility] N/A: Spine SOFAMOR DANEK [id number] # / / Screw Osteogrip 6.5x40mm - [id number] Implanted:Qty: 1 on 11/02/2009 at [facility] N/A: Spine SOFAMOR DANEK [id number] # / / Screw Thin Crest 6.5x45mm - [id number] Implanted:Qty: 9 on 11/02/2009 at [facility] N/A: Lumbar Vertebrae SOFAMOR DANEK [id number] # / / Kit Infuse Bone Graft [id number] - [id number] Implanted:Qty: 1 on 11/02/2009 at [facility] Spine Medtronic [id number]# / / [id number] Capstone 10x26 - [id number] Implanted:Qty: 1 on 11/02/2009 at [facility] Spine SOFAMOR DANEK [id number]# / / [id number] Procedures Procedure Name Priority Date/Time Associated Diagnosis Comments XR MAMMO BRITTANY BILAT SCREEN Routine 05/06/2024 10:39 AM LAWN SERVICE SUPERVISOR Visit for screening mammogram LIPID PANEL W REFLEX MEASURED LDL Routine 05/06/2024 10:13 AM LAWN SERVICE SUPERVISOR Hypercholesterolemi a BASIC METABOLIC PANEL Routine 05/06/2024 10:13 AM LAWN SERVICE SUPERVISOR HTN (hypertension) XR DXA BONE DENSITY 1 SITE AXIAL AND 1 SITE PERIPHERAL Routine 10/05/2015 8:56 AM CDT Other specified disorders of bone density and structure, multiple sites Osteopenia from Last 3 Months or Most Recently Relevant to Health Maintenance Results * XR MAMMO BRITTANY BILAT SCREEN (05/06/2024 10:39 AM LAWN SERVICE SUPERVISOR) Anatomical Region Laterality Modality BREASTS, Breast Left, Breast Right Bilateral Mammography Impressions 05/12/2024 3:14 PM LAWN SERVICE SUPERVISOR There is no radiographic evidence for malignancy. Recommend annual mammograms. MAMMOGRAM ASSESSMENT: ACR 1 Negative PATIENTS: You will also receive a letter with your examination results in an easy to read format. If you have questions about your results, please contact your referring provider. Narrative 05/12/2024 3:14 PM LAWN SERVICE SUPERVISOR For Patients: As a result of the Cures Act, medical imaging exams and procedure reports are released immediately into your electronic medical record. You may view this report before your referring provider. If you have questions, please contact your health care provider. XR MAMMO BRITTANY BILAT SCREEN [[id number]] CLINICAL HISTORY: This is an asymptomatic 78 y.o. patient. INDICATION FOR EXAM: Mammogram Screening. TECHNIQUE: CC & MLO views were obtained. This study was evaluated with the assistance of Computer-Aided Detection. Breast Tomosynthesis was used in interpretation. COMPARISON FILM: Yes 03/30/23 [employer] 01/26/22 [employer] FINDINGS: There are scattered areas of fibroglandular density. There are no dominant masses, suspicious micro calcifications or areas of architectural distortion. us Martina WILSON MAMMO Final R esult * LIPID PANEL W REFLEX MEASURED LDL (05/06/2024 10:13 AM LAWN SERVICE SUPERVISOR) CHOLESTEROL, TOTAL 120 <200 mg/dL [facility] HDL CHOLESTEROL 54 > OR = 50 mg/dL [facility] TRIGLYCERIDES 101 <150 mg/dL [facility] LDL-CHOLESTEROL 48 mg/dL (calc) [facility] Comment: Reference range: <100 Desirable range <100 mg/dL for primary prevention; <70 mg/dL for patients with CHD or diabetic patients with > or = 2 CHD risk factors. LDL-C is now calculated using the Jaquan calculation, which is a validated novel method providing better accuracy than the Friedewald equation in the estimation of LDL-C. Greyson SS et al. MIK. 2013;310(19): 8370-0430 (http://education.Sendia/faq/BTZ146) CHOL/HDLC RATIO 2.2 <5.0 (calc) [facility] NON HDL CHOLESTEROL 66 <130 mg/dL (calc) [facility] Comment: For patients with diabetes plus 1 major ASCVD risk factor, treating to a non-HDL-C goal of <100 mg/dL (LDL-C of <70 mg/dL) is considered a therapeutic option. Blood BLOOD SPECIMEN / Unknown 05/06/2024 10:13 AM LAWN SERVICE SUPERVISOR 05/06/2024 10:13 AM LAWN SERVICE SUPERVISOR Martina WILSON CHEMISTRY Final R esult [facility] [address] [place] [address], [facility] [address] * BASIC METABOLIC PANEL (05/06/2024 10:13 AM LAWN SERVICE SUPERVISOR) [facility] GLUCOSE 89 65 - 99 mg/dL [facility] Comment: Fasting reference interval UREA NITROGEN (BUN) 21 7 - 25 mg/dL [facility] CREATININE 0.70 0.60 - 0.95 mg/dL [facility] EGFR 87 > OR = 60 mL/min/1. 73m2 [facility] BUN/CREATININE RATIO SEE NOTE: 6 - 22 (calc) [facility] Comment: Not Reported: BUN and Creatinine are within reference range. SODIUM 141 135 - 146 mmol/L [facility] POTASSIUM 4.1 3.5 - 5.3 mmol/L [facility] CHLORIDE 105 98 - 110 mmol/L [facility] CARBON DIOXIDE 22 20 - 32 mmol/L [facility] ELECTROLYTE BALANCE 14 7 - 17 mmol/L (calc) [facility] CALCIUM 9.5 8.6 - 10.4 mg/dL [facility] Blood BLOOD SPECIMEN / Unknown 05/06/2024 10:13 AM LAWN SERVICE SUPERVISOR 05/06/2024 10:13 AM LAWN SERVICE SUPERVISOR Martina WILSON CHEMISTRY Final R esult [facility] [address] [place] [address], [employer] [facility] [address] [place] [address] * (ABNORMAL) XR DXA BONE DENSITY 1 SITE AXIAL AND 1 SITE PERIPHERAL (10/05/2015 8:56 AM CDT) Anatomical Region Laterality Modality LUMBAR SPINE Other Narrative 10/06/2015 7:47 AM CDT Please see scanned document for results of this study. us Martina WILSON DEXA Final R esult from Last 3 Months or Most Recently Relevant to Health Maintenance Insurance MEDICARE PART B HB ONLY MEDICARE PART A HB ONLY [facility] WORKERS COMP Advance Directives * Full Code (Latest Code Status on File) Date Activated Date Inactivated Comments 11/02/2009 4:20 PM 11/07/2009 5:08 PM * Full Code Date Activated Date Inactivated Comments 11/02/2009 6:04 AM 11/02/2009 4:20 PM * Full Code Date Activated Date Inactivated Comments 04/09/2007 5:26 PM 04/14/2007 5:31 PM * Full Code Date Activated Date Inactivated Comments 04/09/2007 7:27 AM 04/09/2007 5:26 PM * Full Code Date Activated Date Inactivated Comments 10/04/2005 10:14 AM 10/19/2005 4:35 AM Care Teams Hat Trimmer Relationship Specialty Start Date End Date Martina Mays PA [address] [place] [address] PCP - General 12/21/09
--- OUTSIDE RECORDS SUMMARY | 2024-06-09 15:10 | XMS_ITS | Data Portability ---
Author Organization [place] - [facility], Main Office Address [address] [place] [address] Assessment Encounter Date Assessment Date Assessment LastModified by Organization Details LastModified Time 12/17/2017 12/17/2017 Scattered slightly improved actinic keratosis on the face and arms. History consistent with a seborrheic keratosis treated on the left leg no evidence of recurrence or persistence. History of actinic keratosis modest diffuse on the face. General skin cancer screening today identifying some seborrheic keratosis and solar lentigo's. Plan to add in off label dovonex sunday through sunday and efudex to maintain on weekend. Discussed off label usage, reasoning, modification on a recent off label utilization of dovonex. Not available 01/05/2018 18:58:18 01/03/2019 01/03/2019 1. Actinic keratosis of the chest. Scattered. No prior treatments. Start Efudex once weekly. Today we froze 5 lesions with cryotherapy discussed premalignant nature. 2. Folliculitis with secondary excoriations on the left cheek. There is no clear demonstrable cyst. These are more prurigo nodule like in their nature. We discussed this. We have chosen to start clindamycin lotion twice daily. 3. Seborrheic keratosis face back chest. Offered reassurance discussed benign nature. 4. Seborrheic keratosis left leg see above. 5. Solar lentigos face arms. Offered reassurance. Follow-up in 6 to 9 months. Nupathe total time exceeded 30 minutes over 80% [id number] counseling. Incidentally we touched on the use of Topamax off label for pain. In my experience it is highly effective. She has no history of glaucoma but has had a kidney stone. The dose recommended maximum will be 100 mg. I would not use generic and only name brand as long as cost is not prohibitive. I would defer on the utilization of generics the only option. She will run this by her primary team [email or web address] Not available 01/04/2019 00:02:44 12/03/2019 12/03/2019 1. Actinic keratosis 7 on the face mild. Overall mild change to minimal improvement with once weekly Efudex. Treated all 7 with cryotherapy wound care instructions given. Discussed premalignant nature recommend annual follow-up. Maintain Efudex once weekly long-term. Discussed sunscreens protective clothing. 2. Prior nodules or excoriated several keratosis on the arms. Discussed etiology. Recommend Eucerin roughness relief spot treatment. Warned of irritation. 3. Solar lentigo seborrheic keratosis offered reassurance see #2 above. 4. General skin cancer screening. We discuss the signs and symptoms of basal cell carcinoma, squamous cell carcinoma, melanoma. Reviewed the ugly duckling concept, sunscreens and protective clothing. Follow-up in 1 year. Total visit exceeded 30 minutes over 90% [id number] counseling discussing her concerns educating her on options reviewing these and writing these out verbally and written 5. Folliculitis abdomen excoriated start mupirocin twice daily for 2 weeks. Contact us if not improved [email or web address] Not available 12/03/2019 21:40:26 12/30/2020 12/30/2020 1. Actinic keratosis x3 on the face left nasal sidewall. Froze 3 lesions with cryotherapy recommend annual follow-up wound care instructions given. 2. Solar lentigines offered reassurance. Recommend Tranexamic acid from [employer] discussed off label utilization. 3. Seborrheic keratosis offered reassurance. 4. General skin cancer screening. 5. Peterson angiomas. We discuss the signs and symptoms of basal cell carcinoma, squamous cell carcinoma, melanoma. Reviewed the ugly duckling concept, sunscreens and protective clothing. Follow-up in 1 year Total visit exceeded 30 minutes over 50% [id number] counseling on diagnosis treatments. 6. Hair loss maintain finasteride off label 1/2 tablet daily [email or web address] Not available 12/30/2020 18:02:47 09/29/2023 09/29/2023 Subjective Phyillia Kristen is an 78-year-old female presenting for a dermatology follow-up. She reports having multiple brown spots, some of which have been previously identified as precancerous lesions. She has been using a topical acid treatment for a few months, which she believes has lightened some of the brown spots but has also caused irritation and bleeding in certain areas. Specifically, she mentions a persistent spot on her ear that bleeds when scratched. She also reports a lesion on her cheek that has not healed and another spot on her face that appears to have become precancerous. Additionally, she mentions a cyst on her back that was partially removed about [address] Dos Santos in [place], but she believes the entire sac was not removed as it has since recurred and fluctuates in size. Marilu is concerned about the cyst, especially given her sister's recent diagnosis of breast cancer. She has no makeup on today and believes her skin looks better overall. 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 She has a son and appears to have a supportive family. She has a history of being very active, as evidenced by her driving and engagement in her own skincare. She mentioned discussing a trip to [place] and expressed concern about spending more time with her post-assisted. 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 Family History Marilu's sister recently had breast cancer, which has increased Marilu's concern about lumps and lesions on her own body. No other significant family medical history was mentioned. Past Medical History ---- 1. Multiple precancerous skin lesions. actinic keratosis 2. Partial removal of a cyst on the back approximately [address] Dos Santos in [place]. 3. Sister with recent breast cancer diagnosis. Review of Systems - - Skin: Multiple brown spots, some of which are precancerous. Persistent lesion on the cheek. Cyst on the back that fluctuates in size. No makeup worn today. Skin overall looks better. - HEENT: Bleeding spot on the ear when scratched. - General: No other systemic symptoms reported. Physical Exam Upon examination, the patient, Marilu Peterson, presents with multiple brown spots and precancerous lesions on her skin. There is a notable large brown spot on her forehead, approximately the size of half a dollar, which has shown improvement with the application of a topical treatment. The patient also has a scaly lesion on her ear that has been bleeding intermittently, which upon closer inspection, appears to be a precancerous lesion. Additional scaly areas on her face are consistent with actinic keratosis. There are a few darker brown spots that have appeared recently. Overall, her skin shows improvement with fewer dark brown spots, except for a couple of persistent ones. The patient also has a cyst on her body, which has been previously excised but appears to have recurred. The cyst waxes and wanes in size and has been present for many years. Assessment 1. Actinic keratosis: Multiple precancerous lesions noted on the face and ear. total 3 2. Seborrheic keratosis: Multiple benign brown spots on the face. 3. Recurrent epidermal inclusion cyst: Previously excised but has recurred. Plan ---- - Cryotherapy: Freeze the precancerous lesions on the face and ear. The patient was informed that the treated areas would blister. all 3. - Topical treatments: Continue using the current topical treatments, but avoid applying them to areas that were treated with cryotherapy. TXA and OTC product - Monitor: Regular follow-up to monitor the response of the treated lesions and the cyst. - Surgical excision: Consider re-excision of the recurrent cyst if it becomes bothersome or increases significantly in size. - Patient education: Advised the patient on the importance of avoiding excessive use of acidic topical treatments to prevent skin irritation. Thank you for allowing me to participate in this patient's care. Note reviewed and corrected, content approved, and assessment and plan were completed by me. Not available 09/30/2023 09:04:13 Plan of Treatment Reminders Order Date Submit Date Provider Last Modified By Organization Details Last Modified Time Details Appointments None recorded. Lab None recorded. Referral None recorded. Procedures None recorded. Surgeries None recorded. Imaging None recorded. Medication Orders finasterid e 5 mg tablet 2020 021 [id number], [address] [place], [address], 1 13:22:47 mupirocin 2 % topical ointment 2019 020 [id number], [address], [place], [address], 0 15:05:03 calcipotri fredis 0.005 % topical cream 2018 019 Not available 9 01:02:05 finasterid e 5 mg tablet 2018 019 Not available 9 01:02:05 calcipotri fredis 0.005 % topical cream 2017 018 INTERFACE Not available 8 22:53:14 Efudex 5 % topical cream 2017 018 INTERFACE Not available 8 22:53:13 Patient Targets Encounter Date Encounter Id Patient Goals Patient Target Last Modified By Organization Details Last Modified Time Patient's goals are to identify precancers and skin cancers at the early stages and intervene. Are also continuing to try to minimize the future risk of both by using once weekly Efudex. This point we will can add an calcipotriene Sunday through Sunday. Verbally and written instructions reviewed. We discussed the off label usage. In the distant modification of the recent publication in the last 2 years combining the 2 simultaneously. He had good success in about 2 out of 5 patients with this technique we did not respond well to once weekly Efudex.Will be seen her back in 6 months. [email or web address] Not available 12/17/2017 21:44:57 Patient Instructions Encounter Date Encounter Id Patient Instructions Last Modified By Organization Details Last Modified Time 12/17/2017 [id number] seborrheic keratosis: care instructions Not available 01/05/2018 18:57:16 actinic keratosi s: care instructions Not available 12/17/2017 22:53:11 Please start the calcipotriene cream Sunday through Sunday night once daily before bed. Please continue the 5-fluorouracil on Sunday night. Notice any dryness or irritation from the new cream decrease the usage to possibly 2 or 3 nights a week rather than 6. But do not hesitate to contact us at any time by phone, the patient portal or available other means. Keep wearing your sunscreens will see in 6 months. [email or web address] Not available 12/17/2017 21:45:44 Please wear sunscreens good news no skin cancers today certainly a few scattered wisdom spots and sun spots. Please look for any sores that do not heal after 60 days that is #1 sign of skin cancer do not hesitate to contact us. And if you notice any dark lesion that does not fit in please picker/puller the phone will make time before work after work Saturdays and rarely Sundays if it helps bring ease and sudden recognition of any problems [email or web address] Not available 12/17/2017 21:46:24 12/30/2020 [id number] actinic keratosi s: care instructions Not available 01/03/2021 21:40:43 09/29/2023 [id number] actinic keratosi s: care instructions Not available 09/30/2023 09:04:14 Reason for Referral None Reported. Problems Name Problem SNOMED Code Status Onset Date Resolution Date Notes Provider Name and Address Organization Details Recorded Time Seborrheic keratosis of scalp 895359108 Active 020 ty owusu [facility] 0 14:25:06 Actinic keratosis 382192168 Active 018 buzz owusu [facility] 8 11:44:29 Problem Notes None recorded. Procedures Surgical History Date Name Laterality Status Provider Name and Address Organization Details Recorded Time Appendectomy completed buzz bowles [facility] 12/17/2017 11:47:05 Removal of tonsils completed buzz bowles [facility] 12/17/2017 11:47:17 Hysterectomy/blad ozzie repair completed buzz bowles [facility] 12/17/2017 11:47:35 Unlisted px foot/toes completed buzz bowles [facility] 12/17/2017 11:47:50 Unlisted px hands/fingers completed buzz bowles [facility] 12/17/2017 11:48:15 Laminotomy single lumbar completed buzz bowles [facility] 12/17/2017 11:49:08 Imaging Results None recorded. Procedure Notes None recorded. Medical Equipment None Reported. Allergies Allergen ID Allergen Name Allergen Category Reaction Reaction Severity Criticality Documentation Date Start Date Code Code System Note Provider Name and Address Organization Details Recorded Time 149 latex environme nt,medica tion hives Not available Not available 12/17/2017 95180 91 RxNorm Not Available Not Available Not Available 150 egg extract food,medi cation abdominal pain Not available Not available 12/17/2017 76262 15 RxNorm Not Available Not Available Not Available Medications Name Sig Start Date Stop Date Status Note LastModified by Organization Details LastModified Time losartan 50 mg tablet TAKE ONE TABLET BY MOUTH EVERY DAY active Not Available Not Available No t Available atorvastati n 20 mg tablet 12/17 completed Not Available Not Available Not Available fluconazole 150 mg tablet active Not Available Not Available Not Available cephalexin 250 mg capsule 12/17 completed Not Available Not Available Not Available ondansetron HCl 4 mg tablet TAKE ONE TABLET BY MOUTH EVERY 8 HOURS NEEDED FOR NAUSEA AND VOMITING active Not Available Not Available No t Available fluorouraci l 5 % topical cream APPLY TOPICALLY TWICE DAILY FOR 4 WEEKS. active Not Available Not Available No t Available amlodipine 5 mg tablet TAKE ONE TABLET BY MOUTH EVERY DAY active Not Available Not Available No t Available triamcinolo ne acetonide 0.1 % topical cream APPLY TO AFFECTED AREA(S) TOPICALLY THREE TIMES A DAY active Not Available Not Available No t Available oxycodone-a cetaminophe n 5 mg-325 mg tablet TAKE ONE TO TWO TABLETS BY MOUTH EVERY 4 HOURS NEEDED active Not Available Not Available No t Available tamsulosin 0.4 mg capsule TAKE 1 CAPSULE (0.4 MG) BY MOUTH ONCE DAILY AFTER A MEAL active Not Available Not Available No t Available imiquimod 5 % topical cream packet active Not Available Not Available Not Available calcipotrie ne 0.005 % topical cream APPLY A THIN LAYER TO THE whole face before bed Sunday through Sunday evenings active Not Available Not Available No t Available clotrimazol e-betametha sone 1 %-0.05 % topical cream APPLY TOPICALLY TO AFFECTED AREA(S) TWO TIMES A DAY active Not Available Not Available No t Available pramipexole 0.125 mg tablet TAKE 1-2 BY MOUTH 2-3 HOURS BEFORE BEDTIME FOR RLS active Not Available Not Available No t Available gabapentin 300 mg capsule TAKE ONE CAPSULE BY MOUTH EVERY MORNING, 1 CAPSULE AT NOON, AND 1-2 CAPSULES AT BEDTIME active Not Available Not Available No t Available benazepril 20 mg tablet TAKE ONE TABLET BY MOUTH EVERY DAY active Not Available Not Available No t Available hydrochloro thiazide 25 mg tablet TAKE ONE TABLET BY MOUTH EVERY DAY active Not Available Not Available No t Available mupirocin 2 % topical ointment APPLY A SMALL AMOUNT TO THE AFFECTED AREA BY TOPICAL ROUTE 2-3 TIMES PER DAY active Not Available Not Available No t Available lorazepam 1 mg tablet TAKE 1 TABLET BY MOUTH 30 MINUTES TO 1 HOUR PRIOR TO PROCEDURE active Not Available Not Available No t Available benazepril 10 mg tablet TAKE ONE TABLET BY MOUTH EVERY DAY active Not Available Not Available No t Available ondansetron 4 mg disintegrat ing tablet active Not Available Not Available N ot Available losartan 100 mg tablet TAKE ONE TABLET BY MOUTH EVERY DAY active Not Available Not Available No t Available finasteride 5 mg tablet TAKE ONE TABLET BY MOUTH EVERY DAY active Not Available Not Available No t Available oxycodone 5 mg tablet TAKE ONE TABLET BY MOUTH EVERY 4 HOURS NEEDED FOR CHRONIC PAIN active Not Available Not Available No t Available rosuvastati n 10 mg tablet TAKE ONE TABLET BY MOUTH AT BEDTIME active Not Available Not Available No t Available potassium chloride ER 20 mEq tablet,exte nded release TAKE ONE TABLET BY MOUTH EVERY DAY WITH A MEAL active Not Available Not Available No t Available Shingrix (PF) 50 mcg/0.5 mL intramuscul ar suspension, kit active Not Available Not Available Not Available Vitals Date Recorded Body weight Body height Body mass index (BMI) Systolic blood pressure Diastolic blood pressure Provider Name and Address Organization Details Last Updated DateTime 12/17/2017 34474.96 g 162.56 cm 27.8 kg/m2 148 mm[Hg] 90 mm[Hg] buzz bowles [facility] 8 11:39:16 Social History Question Answer Notes LastModified by Organizat ion Details LastModified Time Tobacco Smoking Status Never Smoker Not Available [employer] 01/20/2020 03:34:37 What Is Your Level Of Alcohol Consumption? None [id number] Information not available 01/20/2020 What Was The Date Of Your Most Recent Tobacco Screening? 12/17/2017 [id number] Information not available 01/20/2020 What Is Your Relationship Status? [id number] Information not available 01/20/2020 Sun Exposure Minimal Information not available 12/17/2017 Do You Use Sunscreen Routinely? Yes [id number] Information not available 01/20/2020 Tanning Bed Exposure No Information not available 12/17/2017 Sex: Unknown Functional Status None recorded. Mental Status None recorded. Family History Relationship Description Onset Age of this Age Resolved Age Notes LastModified by Organization Details LastModified Time Father Malignant neoplasm of skin Not available 2017 11:45:03 Father Family history of malignant neoplasm Pancre atic Not available 12/17/2017 11:45:53 Mother Malignant tumor of breast Not available 2017 11:46:14 Medical History Condition Response Squamous Cell Carcinoma N Thyroid Problems N Pacemaker N Anemia N Seasonal Allergies N Diabetes N Bleeding Disorder N Arthritis N Blood Clot N Tuberculosis N AIDS/HIV N Cancer N Melanoma N Stroke N Asthma N Basal Cell Carcinoma N Skin Cancer N Hepatitis N Liver Disease N Heart Disease N Pulmonary Embolism N Hypertension N Kidney Disease N Gynecological HistoryNo gynecological history recorded. Obstetrics History GPAL:G 0 P 0 0 0 0 Past Encounters Encounter ID Performer Location Encounter Start Date Encounter Closed Date Diagnosis/Indication Diagnosis SNOMED-CT Code Diagnosis ICD10 Code Diagnosis Note [id number] Emily Roger MD Main [email or web address] [place] [address] 12/17/2017 11:31:39 01/05/2018 18:55:40 Actinic keratosis 510494625 L57.0 Multiple a ctinic keratoses 324391683 L57.0 Screening for malignant neoplasm of skin 729156824 Z12.83 Senile hyperkeratosis 39 3031152 L82.1 Solar lentigo 05321541 L 81.4 [id number] Emily Roger MD Main Office [email or web address] [place] [address] 01/03/2019 11:27:23 01/04/2019 13:07:36 Actinic keratosis 061765610 L57.0 Female pat tern alopecia 6116301 L64.8 Folliculitis 62396111 L7 3.9 Inflamed s eborrheic keratosis 831103962 L82.0 [id number] Emily Roger MD Main Office [address] [address] 12/03/2019 13:45:07 12/03/2019 22:16:54 Multiple benign melanocytic nevi 244211273 D22.9 Screening for malignant neoplasm of skin 825681388 Z12.83 Seborrheic keratosis of scalp 237059061 L82.1 Infection of skin 223495 000 L08.9 Actinic keratosis 081489 007 L57.0 [id number] Emily Roger MD Main Office [address] [address] 12/30/2020 11:51:36 01/03/2021 21:43:06 Female pattern alopecia 8385670 L64.8 Actinic keratosis 439559 007 L57.0 Solar lentigo 93803153 L 81.4 Seborrheic keratosis of scalp 529457236 L82.1 Senile angioma 1994297 I 78.1 Screening for malignant neoplasm of skin 274494152 Z12.83 [id number] Emily Roger MD Main Office [address] [address] 09/29/2023 10:40:12 09/30/2023 09:04:49 Actinic keratosis 121544907 L57.0 Seborrheic keratosis of scalp 212919511 L82.1 Solar lentigo 22830133 L 81.4 Screening for malignant neoplasm of skin 901681513 Z12.83 Health Concerns Section Related Observation LastModified by Organization Detai ls LastModified Time None Recorded Concern Status LastModified by Organization Details LastModified Time None Recorded Advance Directives Directive None Recorded Payers Encounter Date Sequence Insurance Name Policy Number Policy Owen Covered Member ID Owen Member ID Guarantor Name 12/17/2017 1 [employer] Liseth Peterson [id number] Liseth Peterson 12/17/2017 1 [place] [facility] Liseth Peterson [id number] Liseth Jones Kristen 01/03/2019 1 [place] [facility] Liseth Peterson [id number] Liseth Jones Kristen 01/03/2019 2 [employer] [id number] Liseth Jones Kristen [id number] Liseth Jones Kristen 12/03/2019 1 [place] [facility] Liseth Peterson [id number] Liseth Jones Kristen 12/03/2019 2 [employer] [id number] Liseth Jones Kristen [id number] Liseth Jones Kristen 12/30/2020 1 [id number] Liseth Peterson [id number] Liseth Jones Kristen 09/29/2023 1 [facility] - OPEN ACCESS CHOICE (HMO) [id number] Liseth Peterson [id number] Liseth Jones Kristen Notes Date Note Type Note Provider Name and Address Organization Details Recorded Time 12/17/2017 text/html 72-year-old whit e female presents today for her annual skin evaluation. I seen her in the past for actinic keratosis treated many with cryotherapy. We are currently using once weekly Efudex to the face she notes mild improvement but roughened areas persist on the nose and lateral face. Nothing bleed scab nor will not heal. She notes there was a dark spot on the left posterior calf which was treated by her primary care physician blistered and was removed and has not recurred. He developed in the last 6 months fairly sudden onset otherwise asymptomatic. He concerns her greatly as she had a father with melanoma. She does not find once weekly Efudex irritating but again she is noticing mild to moderate improvement but not to the level we want. Emily Roger MD [address] [facility] [facility] [address] [place], [address], [facility] 01/05/2018 18:58:22 01/03/2019 text/html 23-year-old yokasta wright presents today for several separate distinct concerns. One is pain in her legs treated by physicians for years. She uses oxycodone but only 30 tablets a year. The pain radiates down her leg. Causing her discomfort daily on a scale of 1-10 it sounds like it is a 7. But she minimizes pain medication utilization. She is on gabapentin. They have talked her about stimulators placed in her spine. She is scared of this. The next concern are brown spots on her face she understands most of these are solar lentigos. She had a history of actinic keratosis for which she is once weekly Efudex to her face but not her chest. She is aware of mild rough scaling on her chest. No recent cryotherapy. No use of Efudex. Minimal alleviating or aggravating factors. She also has 2 areas on the left cheek she squeezes regularly states expressed material. She believes her ingrown hairs. Duration intermittent on and off for years mild to moderate severity. No direct treatments. Her past medical history is reviewed from intake. Review of systems: Overall has reasonably good energy. Notes a lot of pain in her back and legs. Fatigue minimal. Social history unchanged. Family history unchanged Emily Roger MD [address] [place] [address] S, [place], [address], [facility] 01/04/2019 13:07:28 12/03/2019 text/html Returns today fo r several separate concerns. One he is her prior history of actinic keratosis, currently using Efudex once weekly without dryness soreness or irritation. She notes a few rough scaly areas on the face that do not bleed but are rough and scaly. They do not resolve with the Efudex. She is even used acetic acid. With some improvement. She notes several scaly areas on the arms and legs. She notes are pacheco most likely benign but she cannot stop picking at them. They are easily irritated. She notes no specific lesions are truly bleed primarily or will not heal. She is also here for general skin cancer screening. She is aware of several brown areas on her face. She notes the continued pain in her lower legs and make it difficult for her to travel function or enjoy life. She is seen numerous doctors over the years. Past medical history includes the lower back surgeries and pain. No prior history of melanoma. Social history: No changes excluding changes related to the coronavirus. Family history: No changes. Emily Roger MD [address], [place], [id number], [facility] 12/03/2019 22:16:44 12/30/2020 text/html 75-year-old yokasta wright presents today for her annual follow-up and several separate distinct concerns. She is the Efudex once daily for 3 weeks to the nose became red sore and inflamed markedly improved but there are still an erythema scaly patch on the left nasal sidewall. She notes a continued development of brown scaly stuck on pruritic lesions on her back. Around her neck. She has mild generalized pruritus. She is here for general skin evaluation. Her past medical history has been complicated by the back issues that have not improved. She is chosen not to pursue further evaluation or treatment. Otherwise includes a history of actinic keratosis, no melanoma. Social history overall unchanged excluding changes related to the coronavirus. Family history: Unchanged. Review of systems feels in good health. Back is fairly painful. Overall weight is stable no issues with bleeding or clotting She maintains a finasteride with excellent results with no side effects such as decreased libido. Emily Roger MD [address], [place], [address], [facility] 01/03/2021 21:41:26 OBGyn Episode No OBEpisode recorded.
--- NOTE | 2024-06-09 15:40 | CRLHL7_ITS ---
For Patients: As a result of the Century Cures Act, medical imaging exams and procedure reports are released immediately into your electronic medical record. You may view this report before your referring provider. If you have questions, please contact your health care provider. Indication: Fall, neck pain. Technique: Noncontrast CT of the cervical spine with multiplanar reconstruction utilizing bone and soft tissue algorithms. Comparison: Cervical spine radiographs dated 05/11/2013. Findings: No acute fracture or traumatic subluxation. Degenerative reversal of normal cervical lordosis. Grade 1 anterolisthesis at C3-C4, C4-C5, and T1-T2. Multilevel interbody height loss most pronounced from C5-T2. Unremarkable prevertebral soft tissues. No high-grade spinal canal stenosis. Multilevel neural foraminal narrowing, severe on the right at C5-C6. Impression: 1. No acute fracture or traumatic subluxation. 2. Degenerative reversal of the normal cervical lordosis with grade 1 anterolisthesis at C3-C4 and C4-C5. 3. Multilevel neural foraminal narrowing, severe on the right at C5-C6. Please note that all CT scans at this facility use dose modulation, iterative reconstruction, and/or weight-based dosing when appropriate to reduce radiation dose to as low as reasonably achievable. Dictated by Mark Gilliland MD @ 06/09/2024 4:38:58 PM (Electronically Signed)
--- NOTE | 2024-06-09 15:40 | CRLHL7_ITS ---
For Patients: As a result of the Century Cures Act, medical imaging exams and procedure reports are released immediately into your electronic medical record. You may view this report before your referring provider. If you have questions, please contact your health care provider. INDICATION: Fall. TECHNIQUE: Noncontrast CT of the head with multiplanar reconstruction utilizing bone and soft tissue algorithms. COMPARISON: None available. FINDINGS: No acute intracranial hemorrhage. The pacheco-white matter interface is preserved. The ventricles are normal in size. No abnormal extra-axial fluid collection is identified. Normal calvarium and skull base. Unremarkable orbits. Partial opacification of the right posterior ethmoid air cells and left maxillary sinus with small dependent fluid levels. IMPRESSION: 1. No acute intracranial abnormality. 2. Partial opacification of the right ethmoid and left maxillary sinuses with dependent fluid level suggesting acute sinus disease. Please note that all CT scans at this facility use dose modulation, iterative reconstruction, and/or weight-based dosing when appropriate to reduce radiation dose to as low as reasonably achievable. Dictated by Mark Gilliland MD @ 06/09/2024 4:31:32 PM (Electronically Signed)
[2024-06-09 16:10] VITALS: BP 167/78; PULSE 65; RESP 16; TEMP 36.6; O2SAT 96; BMI 26.6
--- NOTE | 2024-06-09 16:43 | ED_ITS ---
HPI - General Adult General Date Seen: 06/09/24 Chief complaint: Fall/Minor Trauma Stated complaint: Fell and hit head, sent by [facility] Time Seen by Provider: 06/09/24 16:43 History of Present Illness HPI narrative: Pleasant 78-year-old female who is referred to the ER today from Urgent Care for evaluation of neck pain. She has a complex past medical history including previous cervical degenerative disc disease with apparently a bulging disc at 1 level but never required operation. She has also had serious lumbar spine disease with more than 1 lumbar spine surgery and she is describing multilevel fusion. She has also had previous left hip replacement. Fortunately she is not anticoagulated or coagulopathic. She had a mechanical fall 2 days ago on Sunday and hit the back of her head. No loss of consciousness. She does not take blood thinners. Since then she has been having increasing pain in the back of her neck so went to the urgent care today. Because of the increasing pain, urgent care provider felt she needed CT imaging and referred her to the ER. She is endorsing pain at the base of her skull and down the right side of her back of her neck into the right trapezius muscle in her shoulder. No numbness or pain radiating down her right arm. No weakness in her arm. No left-sided pain. No pain lower in her back such as in the thoracic or lumbar spine. She did not injure her pelvis or hips. She has been trying to manage her neck pain and headache with her typical medications. She says that usually ibuprofen and Tylenol of her help her so she has been using [id number] topical Biofreeze and hempvana, with limited improvement. Since her neck was getting worse today she went to the urgent care and then was surprised to be referred here to the ER. Related Data Home Medications ?Medication ?Instructions ?Recorded ?Confirmed amlodipine 5 mg tablet mg PO ONCE 09/15/21 06/09/24 benazepril 10 mg tablet mg PO ONCE 09/15/21 06/09/24 finasteride 5 mg tablet 2.5 mg PO DAILY 09/15/21 06/09/24 gabapentin 300 mg capsule 300 mg PO QDAY 09/15/21 06/09/24 naproxen sodium 220 mg tablet 220 mg PO BID 09/15/21 06/09/24 rosuvastatin 10 mg tablet 10 mg PO DAILY 09/15/21 06/09/24 Allergies Allergy/AdvReac Type Severity Reaction Status Date / Time No Known Allergies Allergy Verified 06/09/24 14:13 [facility] Medical History Hair loss ?L65.9 - Nonscarring hair loss, unspecified (ICD-10) Actinic keratoses ?L57.0 - Actinic keratosis (ICD-10) Skin problem ?L98.9 - Disorder of the skin and subcutaneous tissue, unspecified (ICD-10) Stomach problems ?K31.9 - Disease of stomach and duodenum, unspecified (ICD-10) Hypertension ?I10 - Essential (primary) hypertension (ICD-10) Surgical History H/O dilation and curettage ?Z98.890 - Other specified postprocedural states (ICD-10) History of tonsillectomy ?Z90.89 - Acquired absence of other organs (ICD-10) Previous back surgery ?Z98.890 - Other specified postprocedural states (ICD-10) History of left hip replacement ?Z96.642 - Presence of left artificial hip joint (ICD-10) Hx of appendectomy ?Z90.49 - Acquired absence of other specified parts of digestive tract (ICD- 10) History of meniscectomy of right knee ?Z98.890 - Other specified postprocedural states (ICD-10) Social History Narrative: Marital Status: Occupation: retired Alcohol Use: No Smoking Status: Never smoker Do you use any of these nicotine containing products: None How often do you have a drink containing alcohol: never AUDIT-C Alcohol total score: 0 Non-prescribed substance use: denies use Exam Narrative: Exam Narrative: Constitutional: Appears well-developed and well-nourished. Alert. Conversant. Non toxic. HENT: Head: Atraumatic. No depressed skull fracture, Raccoon Eyes, Vieira's sign, or hemotympanum. Face normal. TMs normal Nose: Nose normal. Mouth/Throat: Oral mucosa is clear and moist. no trismus. Pharynx normal. Tonsils symmetric. No tonsillar enlargement, erythema, or exudate. Eyes: Conjunctivae normal. EOM normal. Pupils equal, round, and reactive to light. No scleral icterus. Neck: She does have tenderness primarily over the right discrete 1st serve paraspinous muscle but also involving the midline of the upper cervical spine. No bony crepitus or step-off. Normal range of motion. Neck supple. No tracheal deviation present. Cardiovascular: Normal rate, regular rhythm. No gallop. No friction rub. No murmur heard. Pulmonary/Chest: Effort normal. No stridor. No respiratory distress. No wheezes. No rales. No rhonchi . No ribcage tenderness. Abdominal: Soft. Nontender Musculoskeletal: No T or L-spine tenderness or step-off. RUE: Normal range of motion. No tenderness. No deformity LUE: Normal range of motion. No tenderness. No deformity RLE: Normal range of motion. No edema. No tenderness. No deformity LLE: Normal range of motion. No edema. No tenderness. No deformity Neurological: Mental status normal. Attention normal. Alert and oriented x3. GCS 15. Memory normal. Speech fluent. Cognition normal. Cranial Nerves intact II-XII except I did not formally test gag or visual acuity. EOMI. Palate elevates symmetrically and tongue protrudes in the midline. Strength: 5/5 trapezius on the right and left 5/5 deltoid on the right and left 5/5 biceps on the right and left 5/5 triceps on the right and left 5/5 metalizing machine operator on the right and left 5/5 thumb opposition on the right and le ft 5/5 finger abduction on the right and le ft 5/5 hip flexors (L3) on the right and le ft 5/5 quadriceps (L4) on the right and lef t 5/5 tibialis anterior on the right and l eft 5/5 EHL (L5) on the right and left 5/5 gastrocnemius (S1) on the right and left 5/5 hamstring on the right and left Sensation intact to light touch in both upper extremities (C4-T1) Sensation intact to light touch in Both lower extremities (L4-S1). Finger to nose and coordination normal. Gait normal. Skin: Skin is warm and dry. No rash noted. No pallor. Normal capillary refill. Psychiatric: Normal mood. Normal affect. Very pleasant and conversant. She is eager to get through her ER evaluation because she is wanting to go to the airport to [place] family member at 6:00 p.m.. Const: Vital Signs, click to edit/add: Vital Signs - 24 hr 06/09/24 16:10 Temperature 97.8 F Pulse Rate [Pulse Oximeter] 65 Respiratory Rate 16 Blood Pressure [Ri ght Upper Arm] 167/78 H Pulse Oximetry 96 Oxygen Delivery Me thod Room Air Course Vital Signs Vital signs: Initial Vital Signs Temperature 97.8 F 06/09/24 16:10 Temperature Source Temporal Artery Scan 06/09/24 16:10 Pulse Rate 65 06/09/24 16:10 Respiratory Rate 16 06/09/24 16:10 Blood Pressure 167/78 H 06/09/24 16:10 Blood Pressure Mean 107 H 06/09/24 16:10 Blood Pressure Position Sitting 06/09/24 16:10 Pulse Oximetry 96 06/09/24 16:10 Oxygen Delivery Method Room Air 06/09/24 16:10 Vital Signs Temperature 97.8 F 06/09/24 16:10 Pulse Rate 65 06/09/24 16:10 Respiratory Rate 16 06/09/24 16:10 Blood Pressure 167/78 H 06/09/24 16:10 Pulse Oximetry 96 06/09/24 16:10 Oxygen Delivery Method Room Air 06/09/24 16:10 Temperature 97.8 F 06/09/24 16:10 Pulse Rate 65 06/09/24 16:10 Respiratory Rate 16 06/09/24 16:10 Blood Pressure 167/78 H 06/09/24 16:10 Pulse Oximetry 96 06/09/24 16:10 Oxygen Delivery Method Room Air 06/09/24 16:10 Medical Decision Making MDM Narrative Medical decision making narrative: Very pleasant 78-year-old female referred to the ER today from Urgent Care for evaluation of injuries after she had a mechanical trip and fall 2 nights ago. She did strike the back of her head and injured the back of her neck. Head trauma: Differential includes intracranial injuries (e.g. skull fracture, epidural hematoma, subdural hematoma, intracerebral hemorrhage, and traumatic subarachnoid hemorrhage), verses concussion or other traumatic brain injury. CT imaging was obtained and fortunately was normal. At this time it appears that the patient's symptoms are due to a concussion. Instructions to return to the ER if headaches that get worse, increased drowsiness, strange behavior, repetitive speech, seizures, repeated vomiting, growing confusion, increased irritability, slurred speech, weakness or numbness, and loss of responsiveness. Her primary site of pain is in her posterior neck. Fortunately C-spine CT is negative for any acute fracture. Pain is primarily in the right cervical paraspinous muscles in the top of the right shoulder. At this point no clear evidence for a cervical radiculopathy mandating hospitalization force immediate C-spine MRI. Discussed the potential for radiculopathy and patient will follow-up/return to the ER if she does develop any new numbness or weakness down her right arm. Exam of her shoulder and glenohumeral joint and clavicle is negative for any acute tenderness or fracture. At this point I do not think she needs shoulder x-ray. She is not having any associated rib pain and scapular pain to mandate chest x-ray or chest CT. No pain or tenderness in her thoracic or lumbar spines. Pelvis is stable. Hips are nontender. The patient's questions have been answered. She has a standing prescription from her primary care provider for oxycodone that she can use if needed for bad episodes of pain (she typically uses it when pain in her low back flares up from time to time). She will use that as needed for her neck pain over the next couple of days. opiate precautions. Imaging Data CT C spine: Attestation: I have reviewed the pertinent imaging results. Radiologist's impression: Impression: 1. No acute fracture or traumatic subluxation. 2. Degenerative reversal of the normal cervical lordosis with grade 1 anterolisthesis at C3-C4 and C4-C5. 3. Multilevel neural foraminal narrowing, severe on the right at C5-C6. CT scan - head: Attestation: I have reviewed the pertinent imaging results. Radiologist's impression: IMPRESSION: 1. No acute intracranial abnormality. 2. Partial opacification of the right ethmoid and left maxillary sinuses with dependent fluid level suggesting acute sinus disease. Discharge Plan Discharge Clinical Impression: Fall, Acute neck pain, Headache Patient Disposition: Home, Self-Care Condition: Stable Instructions: Neck Pain (ED) Additional Instructions: As we discussed your scans look good. No signs of any fracture or broken bones in your skull or in your neck. No signs of any serious brain injury. Under scans we do see signs of arthritis in your neck. For now we suspect that your pain is probably due to injured ligaments and muscles in your neck. You can treat this with [id number] medications such as Tylenol. You can also use her topical medications like hempvana, or your prescription oxycodone (from her primary care provider) as needed. We anticipate the or neck will heal slowly over the next few days. If you not dramatically improved within 3-4 days, please recheck with your doctor. If you have worsening symptoms such as worsening severe pain in your neck, new numbness or weakness down your arm, or any other problems, please return to the ER right away. Prescriptions: No Action rosuvastatin 10 mg tablet 10 mg PO DAILY finasteride 5 mg tablet 2.5 mg PO DAILY benazepril 10 mg tablet PO ONCE naproxen sodium 220 mg tablet 220 mg PO BID amlodipine 5 mg tablet PO ONCE gabapentin 300 mg capsule 300 mg PO QDAY Follow Up/Referrals: Martina Mays PA-C [Primary Care Provider] - Stand Alone Forms: [employer] Info Instructions
--- OUTSIDE RECORDS SUMMARY | 2024-06-09 17:00 | XMS_ITS | Data Portability ---
Author Organization [place] [facility] Address [address] [place] [address] Assessment No assessment recorded. Plan of Treatment Reminders Order Date Submit Date Provider Last Modified By Organization Details Last Modified Time Details Appointments None recorded. Lab urinalysis, dipstick 2022 023 [email or web address] [facility], [address], [place], [address], 11:59:27 Referral None recorded. Procedures None recorded. Surgeries ureteroscop y with stone basket extraction, holmium laser fragmentati on (SURG) 2022 023 [email or web address] Not available 15:39:39 Imaging XR, kidney + ureter + bladder - PREV SODUS POINT 01/06/232022 023 [email or web address] [facility] , [address] [place], [address], 3 12:17:50 CT, abdomen + pelvis, w/o contrast 2022 023 [email or web address] [facility] , [address], [place], [address], 3 09:53:24 Medication Orders None recorded. Patient TargetsNo targets recorded. Patient InstructionsNo instructions recorded. Reason for Referral None Reported. Results Created Date Observation Date Name Description Value Unit Range Abnormal Flag Note LastModifiedBy Organization Detail LastModifiedTime 01/30/2001/29/2023 urina lysis , dipst ick Color-Status Yellow Not Available [facility] [address], [place], [address], 01/29/2023 11:59:02 01/30/2001/29/2023 urina lysis , dipst ick Clarity-Stat us Clear Not Available [facility] [address], [place], [address], 01/29/2023 11:59:02 01/30/20 23 01/29/2023 urina lysis , dipst ick Protein-Stat us 5.0 Not Available [facility] [address], [place], [address], 01/29/2023 11:59:02 01/30/2001/29/2023 urina lysis , dipst ick Blood-Status Large Not Available [facility] [address], [place], [address], 01/29/2023 11:59:02 01/13/2001/06/2023 CT, abdom en + pelvi s, w/o contr ast No observ ation record ed. [email or web address] Not Available 12/19 11:45:06 01/31/2001/29/2023 XR, kidne y + urete r + bladd er EXAM: XR, KIDNEY + URETER + BLADDE R LOCATI ON: [facility] DATE: 2022 INDICA TION: Calcul us of kidney COMPAR DEQUAN: CT abdome n and pelvis 2022 IMPRES ERIN: No urinar y tract calcul i by plain radiog vernon. Consid er CT stone study if clinic ally indica floresita. Tiny probab le pelvic phlebo liths. Nonobs tructi ve bowel gas patter n. No signif icant stool burden . No free air. PLIF in the lumbar spine. Left hip arthro plasty . Right hip osteoa rthrit is. This report was electr onical ly interp reted by: Ellis Davidson MD on 2022 at 11:15 [email or web address] [facility] [place] [address], [place], [address], 01/31/2023 09:24:59 Result Notes None recorded. Procedures Surgical History None recorded. Imaging Results Imaging Date Name Status LastModified by Organiz ation Details LastModified Time 01/06/2023 CT, abdomen + pelvis, w/o contrast completed [email or web address] Information not available 01/15/2023 11:45:06 01/29/2023 XR, kidney + ureter + bladder completed [email or web address] [facility] [place] [address], [place], [address], 01/31/2023 09:24:59 Procedure Notes None recorded. Medical Equipment None Reported. Allergies No known drug allergies Medications Name Sig Start Date Stop Date Status Note LastModified by Organization Details LastModified Time ondansetron HCl 4 mg tablet TAKE ONE [...] oxycodone-a cetaminophe n 5 mg-325 mg tablet active Not Available Not Available No t Available tamsulosin 0.4 mg capsule TAKE 1 CAPSULE (0.4 MG) BY MOUTH ONCE DAILY AFTER A MEAL active Not Available Not Available No t Available clotrimazol e-betametha sone 1 %-0.05 % topical cream APPLY TOPICALLY TO AFFECTED AREA(S) TWO TIMES A DAY active Not Available Not Available No t Available gabapentin 300 mg capsule TAKE 1 CAPSULE BY MOUTH EVERY DAY IN THE MORNING, 1 CAPSULE AT NOON, AND 1-2 CAPSULES AT BEDTIME active Not Available Not Available No t Available benazepril 20 mg tablet TAKE 1 TABLET BY MOUTH ONCE DAILY active Not Available Not Available No t Available benazepril 10 mg tablet TAKE ONE TABLET BY MOUTH EVERY DAY 01/29 completed Not Available Not Available Not Available ondansetron 4 mg disintegrat ing tablet active Not Available Not Available N ot Available finasteride 5 mg tablet TAKE ONE-HALF TABLET BY MOUTH EVERY DAY active Not Available Not Available No t Available oxycodone 5 mg tablet TAKE 1 TABLET (5 MG) BY MOUTH EVERY 4 HOURS IF NEEDED FOR CHRONIC PAIN active Not Available Not Available No t Available rosuvastati n 10 mg tablet TAKE ONE TABLET BY MOUTH AT BEDTIME active Not Available Not Available No t Available Vitals Date Recorded Body height Body mass index (BMI) Body weight Provider Name and Address Organization Details Last Updated DateTime 01/29/2023 162.56 cm 26.6 kg/m2 43583.82 g Frederick Crawley MD [address] [place] [address],[address] [facility] 01/29/2023 11:56:38 Social History Question Answer Notes LastModified by Organizat ion Details LastModified Time Tobacco Smoking Status Never Smoker Frederick Crawley MD [address] [place], [place] [id number] [place] [address] Urology 01/29/2023 11:58:29 What Is Your Level Of Alcohol Consumption? None Information not available 01/29/2023 What Was The Date Of Your Most Recent Tobacco Screening? 01/29/2023 Information not available 01/29/2023 Sex: Female Functional Status None recorded. Mental Status None recorded. Family History Nothing Reported. Medical History Condition Response Sexually Transmitted Infection N Diabetes N Other N Bleeding Disorder N High Blood Pressure Y Kidney Stones Y High Cholesterol Y GERD/Acid Reflux N Heart Disease N Cancer N Depression N Lung Disease N Gynecological HistoryNo gynecological history recorded. Obstetrics History GPAL:G 0 P 0 0 0 0 Immunizations Vaccine Type Date Status Note Provider Nam e and Address Organization Details Recorded Time zoster recombinant 9 completed Frederick Crawley MD [address] [place] [address],[address], [address] [place] [address] Urology 01/29/2023 11:57:02 zoster recombinant 9 completed Frederick Crawley MD [address] [place] [address],[address] [address] [place] [address] Urology 01/29/2023 11:57:02 COVID-19, mRNA, LNP-S, PF, 100 mcg/0.5mL dose or 50 mcg/0.25mL dose 1 completed Frederick Crawley MD [address] [place] [address],[address], [place], [address], [facility] 01/29/2023 11:57:02 COVID-19 vaccine, vector-nr, rS-Ad26, PF, 0.5 mL 1 completed Frederick Crawley MD [address] [place] [address],[address], [place], [address], [facility] 01/29/2023 11:57:02 pneumococcal polysaccharide PPV23 0 completed Frederick Crawley MD [address] [place] [address],[address], [address], [facility] 01/29/2023 11:57:02 Tdap 2 completed Frederick Crawley MD [address] [place] [address],[address], [address], [facility] 01/29/2023 11:57:02 Pneumococcal conjugate PCV 13 0 completed Frederick Crawley MD [address] [place] [address],[address] [place] [address], [address], [facility] 01/29/2023 11:57:02 zoster live 8 completed Frederick Crawley MD [address] [place] [address],[address], [place], [address], [facility] 01/29/2023 11:57:02 Td (adult), 5 Lf tetanus toxoid, preservative free, adsorbed 6 completed Frederick Crawley MD [address] [place] [address],[address] [place] [address], [address], [facility] 01/29/2023 11:57:02 Past Encounters Encounter ID Performer Location Encounter Start Date Encounter Closed Date Diagnosis/Indication Diagnosis SNOMED-CT Code Diagnosis ICD10 Code Diagnosis Note [id number] Kamini See [facility] [address] [place] [address] 01/29/2023 11:44:03 02/05/2023 20:01:55 Kidney stone 92369277 N20.0 1. Left ureteral stone- reviewed CT scan (01/06/23) images - Left - 4 mm stone (proximal ureter) - 4.2 cm lesion (mid-kidne y)- the stone has likely moved down the ureter (likely at the distal ureter currently) - check KUB- recommend scheduling Left ureterosco py with laser lithotrips y and possible stent placement( risks include - bleeding, infection, incomplete stone removal, and stent irritation )- will check 24 Hr urine study once the stone is gone (assess risk factors for stone formation) ADDENDUM:- KUB (01/29/23) - 3 mm calcificat ion in Left pelvis (ureteral stone vs phlebolith )Plan - check CT scan (stone tech) 1 day before surgery - to assess if the stone has passed(if she catches the stone - can cancel CT scan and surgery) Cyst of kidney 206767485 N28.1 2. Bilateral renal cysts- Renal MRI (01/23/23) - Bilateral (simple) renal cysts - no renal masses- no further evaluation needed Health Concerns Section Related Observation LastModified by Organization Detai ls LastModified Time None Recorded Concern Status LastModified by Organization Details LastModified Time None Recorded Advance Directives Directive None Recorded Payers Encounter Date Sequence Insurance Name Policy Number Policy Owen Covered Member ID Owen Member ID Guarantor Name 01/29/2023 1 [employer] - OPEN ACCESS CHOICE (HMO) [id number] Gretta Peterson [id number] Liseth Peterson Notes Date Note Type Note Provider Name and Address Organization Details Recorded Time 01/29/2023 text/html 77 yo female wit h history of HTN, RLS, migraine headaches, and kidney stones (passed a stone in 2005). She developed Left flank pain in mid-December. CT scan (01/06/23) revealed 4 mm stone in proximal Left ureter. She reports intermittent Left flank pain over the past 3 weeks - with occasional gross hematuria. She reports bladder irritation - feeling the need to urinate - over the past 24 hours. She denies dysuria- UA - lg blood - no LE CT scan (01/06/23) - Left - 4 mm stone (proximal ureter) - 4.2 cm lesion (mid-kidney) Renal MRI (01/23/23) - Bilateral (simple) renal cysts - no renal masses. Frederick Crawley MD [address], [place], [address], [facility] 01/30/2023 21:46:18 OBGyn Episode No OBEpisode recorded.
--- OUTSIDE RECORDS SUMMARY | 2024-06-09 17:00 | XMS_ITS | Clinical Summary ---
Author Organization [facility] Address [address] [place] [address] Care Team Providers Care Registered Occupational Therapist Name Role Phone Martina Mays Primary Care [...] Type Department Care Team Description 05/29/2024 Refill [facility] [address] [place] [address] Martina Mays PA Refill Request (Rosuvastatin) 05/20/2024 2:20 PM DOUGHNUT MACHINE OPERATOR HELPER Office Visit [facility] [address] [place] [address] Ricky Shukla, OD Eye Exam (CEE) 05/20/2024 Travel 05/15/2024 Travel 05/06/2024 10:40 AM DOUGHNUT MACHINE OPERATOR HELPER Ancillary Procedure [facility] [address] [place] [address] 05/06/2024 9:30 AM DOUGHNUT MACHINE OPERATOR HELPER Office Visit [facility] [address] [place] [address] Martina Mays PA Medication Management (Gabapentin - discuss pain clinics recommendations ); Follow Up (Was at pain clinic last week, would like to discuss); Wheezing; Headache (Has been getting a pain in the same spot in her head) 05/06/2024 Travel 05/02/2024 Travel 04/17/2024 Refill [facility] [address] [place] [address] Martina Mays PA Refill Request (Amlodipine) from [...] on file Legal Sex Female 5:23 AM DOUGHNUT MACHINE OPERATOR HELPER Gender Identity Not on file Sexual Orientation Not on file Obstetrics History Para Term AB IAB SAB Ectopic Multiple Livin g Live Births 1 1 Date Outcome GA Total Labor Labor/2nd/3rd Weight Sex Type Anes PTL Yesi A1 A5 Name Clin Para Last Filed Vital Signs Vital Sign Reading Time Taken Comments Blood Pressure 128/75 05/06/2024 9:34 AM DOUGHNUT MACHINE OPERATOR HELPER Pulse 65 05/06/2024 9:34 AM DOUGHNUT MACHINE OPERATOR HELPER Temperature 36.8 C (98.2 F) 12/27/2023 1:16 PM CDT Respiratory Rate 12 06/28/2016 11:34 AM CDT Oxygen Saturation 98% 05/06/2024 9:34 AM DOUGHNUT MACHINE OPERATOR HELPER Inhaled Oxygen Concentration - - Weight 73.9 [...] 11/04/2009 Medical Devices Implanted Type Area Rn Care Transition Device Identifier Shelf Expiration Date Model / Serial / Lot Silas Spinal Hex End 20in Titnm Cd - [id number] Implanted:Qty: 1 on 11/02/2009 at [facility] Spine Implants N/A: Spine SOFAMOR DANEK 855-011# / / [id number] e Precision [id number] [[id number]] Implanted:Qty: 1 on 04/09/2007 at [facility] Explanted:at [facility] (Quantity not on file) Spine [employer] 11/09/2011 [id number]# / [id number] / [id number] Prec 14x26 [[id number]] Implanted:Qty: 1 on 04/09/2007 at [facility] Explanted:at [facility] (Quantity not on file) Spine [employer] 04/06/2011 [id number]# / [id number] / [id number] bone Canclls Crushed 30cc [[id number]] Implanted:Qty: 1 on 04/09/2007 at [facility] Explanted:at [facility] (Quantity not on file) Spine Allosource 01/22/2012 [id number] # / [id number] / Kit [place] Md - [id number] Implanted:Qty: 1 on 04/09/2007 at [facility] Spine SOFAMOR DANEK [id number]# / / [id number] AG Screw Polyaxial 6.5x45mm - [id number] Implanted:Qty: 4 on 04/09/2007 at [facility] Spine HOWMEDICA [id number] # / / Screw Polyaxial 6.5x40mm - [id number] Implanted:Qty: 1 on 04/09/2007 at [facility] Spine [employer]MEDICA [id number] # / / Dot Vicky [id number] - [id number] Implanted:Qty: 6 on 04/09/2007 at [facility] Spine HOWMEDICA [id number]# / / Screw Polyaxial 6.5x35mm - [id number] Implanted:Qty: 1 on 04/09/2007 at [facility] Spine [employer]MEDICA [id number] # / / Silas Vicky Rad 60mm 108mm Radius - [id number] Implanted:Qty: 2 on 04/09/2007 at [facility] Spine [employer]MEDICA [id number] # / / [id number] Canclls Crushed 60cc [[id number]] Implanted:Qty: 1 on 11/02/2009 at [facility] Explanted:at [facility] (Quantity not on file) Spine Musculoskeletal Transplant 07/12/2012 118208# / [id number] / Set Screw 3dx - [id number] Implanted:Qty: 11 on 11/02/2009 at [facility] N/A: Spine MEDTRONIC PS MEDICAL [id number]# / / Cnnctr Tsrh 3dx Sm - [id number] Implanted:Qty: 11 on 11/02/2009 at [facility] N/A: Spine Medtronic [id number]# / / Screw Osteogrip 6.5x35mm - [id number] Implanted:Qty: 1 on 11/02/2009 at [facility] N/A: Spine SOFAMOR DANEK [id number] # / / Screw Osteogrip 6.5x40mm - [id number] Implanted:Qty: 1 on 11/02/2009 at [facility] N/A: Spine SOFAMOR DANEK [id number] # / / Screw Thin Crest 6.5x45mm - [id number] Implanted:Qty: 9 on 11/02/2009 at [facility] N/A: Lumbar Vertebrae SOFAMOR DANEK [id number] # / / Kit Infuse Bone Graft [id number] - [id number] Implanted:Qty: 1 on 11/02/2009 at [facility] Spine Medtronic [id number]# / / [id number] Capstone 10x26 - [id number] Implanted:Qty: 1 on 11/02/2009 at [facility] Spine SOFAMOR DANEK [id number]# / / [id number] Procedures Procedure Name Priority Date/Time Associated Diagnosis Comments XR MAMMO BRITTANY BILAT SCREEN Routine 05/06/2024 10:39 AM DOUGHNUT MACHINE OPERATOR HELPER Visit for screening mammogram LIPID PANEL W REFLEX MEASURED LDL Routine 05/06/2024 10:13 AM DOUGHNUT MACHINE OPERATOR HELPER Hypercholesterolemi a BASIC METABOLIC PANEL Routine 05/06/2024 10:13 AM DOUGHNUT MACHINE OPERATOR HELPER HTN (hypertension) XR DXA BONE DENSITY 1 SITE AXIAL AND 1 SITE PERIPHERAL Routine 10/05/2015 8:56 AM CDT Other specified disorders of bone density and structure, multiple sites Osteopenia from Last 3 Months or Most Recently Relevant to Health Maintenance Results * XR MAMMO BRITTANY BILAT SCREEN (05/06/2024 10:39 AM DOUGHNUT MACHINE OPERATOR HELPER) Anatomical Region Laterality Modality BREASTS, Breast Left, Breast Right Bilateral Mammography Impressions 05/12/2024 3:14 PM DOUGHNUT MACHINE OPERATOR HELPER There is no radiographic evidence for malignancy. Recommend annual mammograms. MAMMOGRAM ASSESSMENT: ACR 1 Negative PATIENTS: You will also receive a letter with your examination results in an easy to read format. If you have questions about your results, please contact your referring provider. Narrative 05/12/2024 3:14 PM DOUGHNUT MACHINE OPERATOR HELPER For Patients: As a result of the Cures Act, medical imaging exams and procedure reports are released immediately into your electronic medical record. You may view this report before your referring provider. If you have questions, please contact your health care provider. XR MAMMO BRITTANY BILAT SCREEN [[id number]] CLINICAL HISTORY: This is an asymptomatic 78 y.o. patient. INDICATION FOR EXAM: Mammogram Screening. TECHNIQUE: CC & MLO views were obtained. This study was evaluated with the assistance of Computer-Aided Detection. Breast Tomosynthesis was used in interpretation. COMPARISON FILM: Yes 03/30/23 [employer] 01/26/22 [employer] FINDINGS: There are scattered areas of fibroglandular density. There are no dominant masses, suspicious micro calcifications or areas of architectural distortion. us Martina WILSON MAMMO Final R esult * LIPID PANEL W REFLEX MEASURED LDL (05/06/2024 10:13 AM DOUGHNUT MACHINE OPERATOR HELPER) CHOLESTEROL, TOTAL 120 <200 mg/dL [facility] [...] LDL-C. Greyson SS et al. MIK. 2013;310(19): 2296-0414 (http://education.Etubics/faq/IFZ191) CHOL/HDLC RATIO 2.2 <5.0 (calc) [facility] NON HDL CHOLESTEROL 66 <130 mg/dL (calc) [facility] Comment: For patients with diabetes plus 1 major ASCVD risk factor, treating to a non-HDL-C goal of <100 mg/dL (LDL-C of <70 mg/dL) is considered a therapeutic option. Blood BLOOD SPECIMEN / Unknown 05/06/2024 10:13 AM DOUGHNUT MACHINE OPERATOR HELPER 05/06/2024 10:13 AM DOUGHNUT MACHINE OPERATOR HELPER Martina WILSON CHEMISTRY Final R esult [facility] [address] [place] [address], [facility] [address] * BASIC METABOLIC PANEL (05/06/2024 10:13 AM DOUGHNUT MACHINE OPERATOR HELPER) [facility] GLUCOSE 89 65 - 99 mg/dL [facility] Comment: Fasting reference interval UREA NITROGEN (BUN) 21 7 - 25 mg/dL [facility] CREATININE 0.70 0.60 - 0.95 mg/dL [facility] EGFR 87 > OR = 60 mL/min/1. 73m2 [facility] BUN/CREATININE RATIO SEE NOTE: 6 - 22 (calc) [facility] Comment: Not Reported: BUN and Creatinine are within reference range. SODIUM 141 135 - 146 mmol/L [facility] POTASSIUM 4.1 3.5 - 5.3 mmol/L [facility] CHLORIDE 105 98 - 110 mmol/L [facility] CARBON DIOXIDE 22 20 - 32 mmol/L [facility] ELECTROLYTE BALANCE 14 7 - 17 mmol/L (calc) [facility] CALCIUM 9.5 8.6 - 10.4 mg/dL [facility] Blood BLOOD SPECIMEN / Unknown 05/06/2024 10:13 AM DOUGHNUT MACHINE OPERATOR HELPER 05/06/2024 10:13 AM DOUGHNUT MACHINE OPERATOR HELPER Martina WILSON CHEMISTRY Final R esult [facility] [address] [place] [address], [facility] [address] [place] [address] * (ABNORMAL) XR DXA BONE DENSITY 1 [...] HB ONLY MEDICARE PART A HB ONLY [facility] MR WORKERS COMP Advance Directives * Full [...] 10:14 AM 10/19/2005 4:35 AM Care Teams Registered Occupational Therapist Relationship Specialty Start Date End Date Martina Mays PA [address] [place] [address] PCP - General 12/21/09
== END 2024-06-09 17:00 | disposition home or self-care (01) ==
PROVIDERS: Emergency Provider Emergency Medicine; PCP Physician Assistant Medical
DX: M54.2 Cervicalgia (principal); R51.9 Headache, unspecified; W19.XXXA Unspecified fall, initial encounter
CPT/HCPCS: 70450; 72125; 99283; 99284